=== PATIENT | male | born 1980 | race African-American/Black ===

== ENCOUNTER 2018-02-14 06:32 | Inpatient (IN) | payer MEDICAID, OTHER ==
[~2018-02-14] VITALS: Ht 182.9 cm; Wt 115.7 kg
[2018-02-14] MEDS ORDERED: LEVOFLOXACIN500 MG ORAL (06:47)
[2018-02-14] MEDS ORDERED: HYDROCODON-ACE1 EA15 ORAL (06:47)
--- NOTE | 2018-02-14 07:04 | Emergency Room Report ---
History of Present Illness General Chief Complaint: Abdominal Pain Source: Patient Present Illness HPI Patient presents with complaints of left lower abdominal pain Also pain with urination He reports that last week he was at [facility] with diagnosis of diverticulitis he was in the hospital for 4 days Denies any fevers Denies any vomiting denies any diarrhea As the pain became worse and the patient was having more pain with urination He was concerning came to the ER Allergies: Coded Allergies: No Known Allergies (Unverified , 02/14/18) Patient History Past Medical History: see triage record Pertinent Family History: none Reviewed Nursing Documentation: PMH: Agreed; PSxH: Agreed Nursing Documentation-PMH Past Medical History: No History, Except For Review of Systems All Other Systems: negative except mentioned in HPI Physical Exam Vital Signs Date Time Temp Pulse Resp B/P (MAP) Pulse Ox O2 Delivery O2 Flow Rate FiO2 02/14/18 06:42 98.1 92 24 149/93 95 Room Air Sp02 EP Interpretation: reviewed, normal General Appearance: no apparent distress Head: normocephalic, atraumatic Eyes: bilateral eye PERRL, bilateral eye EOMI ENT: hearing grossly normal, normal pharynx, TMs + canals normal, uvula midline Neck: full range of motion, supple, no meningismus, no bony tend Respiratory: lungs clear, normal breath sounds, no rhonchi, no respiratory distress, no retraction, no accessory muscle use Cardiovascular #1: normal peripheral pulses, regular rate, rhythm, no edema, no gallop, no JVD, no murmur Gastrointestinal: normal bowel sounds, non tender - On palpation however subjectively points to the left lower quadrant for pain, soft, no mass, no organomegaly, non-distended, no guarding, no hernia, no pulsatile mass, no rebound Genitourinary: no CVA tenderness Musculoskeletal: normal inspection Neurologic: oriented x3, responsive, round kiln drawer III-XII nml as tested, motor strength/ tone normal, sensory intact Psychiatric: mood/affect normal Skin: normal color, no rash, warm/dry, palpation normal Lymphatic: normal inspection, no adenopathy Medical Decision Making Diagnostic Impression: Primary Impression: Diverticulitis ER Course With the history exam and presentation, multiple differentials considered, including but not limited to appendicitis, gastritis, cholecystitis, diverticulitis Patient's white blood cell count is elevated CT imaging is performed showing evidence of acute diverticulitis Was also question and concern of possible microperforations Patient initiated on broad-spectrum antibiotics further IV hydration Gen. surgery has been contacted and patient requires inpatient admission Labs Test 02/14/18 06:45 White Blood Count 21.0 K/UL (4.8-10.8) Red Blood Count 5.38 M/UL (4.70-6.10) Hemoglobin 15.7 G/DL (14.2-18.0) Hematocrit 46.3 % (42.0-52.0) Mean Corpuscular Volume 86 FL (80-99) Mean Corpuscular Hemoglobin 29.2 PG (27.0-31.0) Mean Corpuscular Hemoglobin Concent 34.0 G/DL (32.0-36.0) Red Cell Distribution Width 10.8 % (11.6-14.8) Platelet Count 558 K/UL (150-450) Mean Platelet Volume 5.7 FL (6.5-10.1) Neutrophils (%) (Auto) % (45.0-75.0) Lymphocytes (%) (Auto) % (20.0-45.0) Monocytes (%) (Auto) % (1.0-10.0) Eosinophils (%) (Auto) % (0.0-3.0) Basophils (%) (Auto) % (0.0-2.0) Differential Total Cells Counted 100 Neutrophils % (Manual) 90 % (45-75) Lymphocytes % (Manual) 6 % (20-45) Monocytes % (Manual) 4 % (1-10) Eosinophils % (Manual) 0 % (0-3) Basophils % (Manual) 0 % (0-2) Band Neutrophils 0 % (0-8) Platelet Estimate Increased Platelet Morphology Normal Red Blood Cell Morphology Normal Urine Color Yellow Urine Appearance Clear Urine pH 5 (4.5-8.0) Urine Specific [place] 1.020 (1.005-1.035) Urine Protein 1+ (NEGATIVE) Urine Glucose (UA) Negative (NEGATIVE) Urine Ketones 2+ (NEGATIVE) Urine Blood Negative (NEGATIVE) Urine Nitrite Negative (NEGATIVE) Urine Bilirubin Negative (NEGATIVE) Urine Urobilinogen Normal MG/DL (0.0-1.0) Urine Leukocyte Esterase 1+ (NEGATIVE) Urine RBC 0 /HPF (0 - 0) Urine WBC 2-4 /HPF (0 - 0) Urine Squamous Epithelial Cells Occasional /LPF Urine Bacteria Occasional /HPF (NONE) Urine Mucus Many /LPF (NONE/OCC) Sodium Level 138 MMOL/L (136-145) Potassium Level 3.8 MMOL/L (3.5-5.1) Chloride Level 101 MMOL/L (98-107) Carbon Dioxide Level 24 MMOL/L (21-32) Anion Gap 13 mmol/L (5-15) Blood Urea Nitrogen 7 mg/dL (7-18) Creatinine 1.2 MG/DL (0.55-1.30) Estimat Glomerular Filtration Rate > 60 mL/min (>60) Glucose Level 104 MG/DL (74-106) Calcium Level 9.7 MG/DL (8.5-10.1) Total Bilirubin 0.4 MG/DL (0.2-1.0) Aspartate Amino Transf (AST/SGOT) 16 U/L (15-37) Alanine Aminotransferase (ALT/SGPT) 34 U/L (12-78) Alkaline Phosphatase 95 U/L (46-116) Total Protein 8.6 G/DL (6.4-8.2) Albumin 3.7 G/DL (3.4-5.0) Globulin 4.9 g/dL Albumin/Globulin Ratio 0.8 (1.0-2.7) Lipase 174 U/L (73-393) Urine Opiates Screen Positive (NEGATIVE) Urine Barbiturates Screen Negative (NEGATIVE) Phencyclidine (PCP) Screen Negative (NEGATIVE) Urine Amphetamines Screen Negative (NEGATIVE) Urine Benzodiazepines Screen Negative (NEGATIVE) Urine Cocaine Screen Negative (NEGATIVE) Urine Marijuana (THC) Screen Positive (NEGATIVE) Rhythm Strip Diag. Results EP Interpretation: yes Rate: 77 Rhythm: NSR, no PVC's, no ectopy CT/MRI/US Diagnostic Results CT/MRI/US Diagnostic Results : Impression CT abdomen pelvisIMPRESSION: Acute diverticulitis versus colitis in the sigmoid colon. Segmental wall thickening involving approximately 10-12 cm of the proximal and mid sigmoid colon with adjacent inflammatory stranding and adjacent trace foci of extraluminal free air, suggesting microperforation. Last Vital Signs Date Time Temp Pulse Resp B/P (MAP) Pulse Ox O2 Delivery O2 Flow Rate FiO2 02/14/18 06:42 98.1 92 24 149/93 95 Room Air Status: improved Disposition: ADMITTED INPATIENT Condition: Serious Referrals: [facility],REFERRING (PCP) Javier Carver DO Feb 14, 2018 07:04
[2018-02-14] MEDS ORDERED: Isovue-300 100ml vial INJ PRN (07:15)
[2018-02-14] MEDS ORDERED: Ketorolac 30mg Inj IV ONE (07:15)
[2018-02-14 07:21] VITALS: BP 153/91
[2018-02-14 07:25] LABS: APPEARANCE,URINE CLEAR; BILIRUBIN, URINE NEGATIVE (NEGATIVE); GLUCOSE, URINE (UA) NEGATIVE (NEGATIVE); KETONES,URINE 2+ (NEGATIVE); LEUKOCYTE ESTERASE ,URINE 1+ (NEGATIVE); NITRITE,URINE NEGATIVE (NEGATIVE); PH,URINE 5 (4.5-8.0); PROTEIN,URINE 1+ (NEGATIVE); UROBILINOGEN,URINE NORMAL MG/DL (0.0-1.0)
[2018-02-14 07:29] LABS: COLOR,URINE YELLOW
[2018-02-14 07:40] LABS: HEMATOCRIT 46.3 % (42.0-52.0); HEMOGLOBIN 15.7 G/DL (14.2-18.0); MEAN CORPUSCULAR VOLUME 86 FL (80-99); PLATELET COUNT 558 K/UL (150-450); RED BLOOD COUNT 5.38 M/UL (4.70-6.10); RED CELL DISTRIBUTION WIDTH 10.8 % (11.6-14.8)
[2018-02-14] MEDS ORDERED: Piperacillin/Tazobactam 3.375 GM in NS 110 ML IVPB ONE (07:45)
[2018-02-14 07:46] LABS: ANION GAP 13 mmol/L (5-15); BLOOD UREA NITROGEN 7 mg/dL (7-18); CALCIUM 9.7 MG/DL (8.5-10.1); CARBON DIOXIDE 24 MMOL/L (21-32); CHLORIDE 101 MMOL/L (98-107); CREATININE 1.2 MG/DL (0.55-1.30); POTASSIUM 3.8 MMOL/L (3.5-5.1); SODIUM 138 MMOL/L (136-145)
[2018-02-14 07:50] LABS: ALANINE AMINOTRANSFERASE 34 U/L (12-78); ALBUMIN 3.7 G/DL (3.4-5.0); ALBUMIN/GLOBULIN RATIO 0.8 (1.0-2.7); ALKALINE PHOSPHATASE 95 U/L (46-116); ASPARTATE AMINO TRANSFERASE 16 U/L (15-37); BILIRUBIN,TOTAL 0.4 MG/DL (0.2-1.0)
--- NOTE | 2018-02-14 08:50 | Diagnostic Imaging Report ---
EXAM: CT Abdomen and Pelvis With Intravenous Contrast CLINICAL HISTORY: PAIN TECHNIQUE: Axial computed tomography images of the abdomen and pelvis with intravenous contrast. CTDI is 18.99 mGy and DLP is 969 mGy-cm. One or more of the following dose reduction techniques were used: automated exposure control, adjustment of the mA and/or kV according to patient size, use of iterative reconstruction technique. COMPARISON: No relevant prior studies available. FINDINGS: Lung bases: Unremarkable. No mass. No consolidation. ABDOMEN: Liver: Unremarkable. No mass. Gallbladder and bile ducts: Unremarkable. No calcified stones. No ductal dilation. Pancreas: Unremarkable. No mass. No ductal dilation. Spleen: Unremarkable. No splenomegaly. Adrenals: Unremarkable. No mass. Kidneys and ureters: Unremarkable. No solid mass. No hydronephrosis. Stomach and bowel: Segmental wall thickening involving approximately 10-12 cm segment of the proximal and mid sigmoid colon with adjacent inflammatory stranding and adjacent trace foci of extraluminal free air. Remainder of the colon appears unremarkable. No abnormally distended loops of small bowel. GE junction and stomach appear unremarkable. No mucosal thickening. PELVIS: Appendix: No findings to suggest acute appendicitis. Bladder: Unremarkable. No mass. Reproductive: Unremarkable as visualized. ABDOMEN and PELVIS: Intraperitoneal space: Trace foci of free intraperitoneal air adjacent to the inflamed sigmoid colon. No significant fluid collection. Bones/joints: No acute fracture. No dislocation. Soft tissues: Unremarkable. Vasculature: Unremarkable. No abdominal aortic aneurysm. Lymph nodes: Unremarkable. No enlarged lymph nodes. IMPRESSION: Acute diverticulitis versus colitis in the sigmoid colon. Segmental wall thickening involving approximately 10-12 cm of the proximal and mid sigmoid colon with adjacent inflammatory stranding and adjacent trace foci of extraluminal free air, suggesting microperforation.
[2018-02-14 12:00] VITALS: BP 146/89
[2018-02-14] MEDS: Morphine Sulfate 2mg/ml Inj IVP PRN ×4 (12:41→22:42)
[2018-02-14] MEDS: Enoxaparin 40mg Inj SUBQ SCH (13:03)
--- NOTE | 2018-02-14 13:44 | Consultation ---
History of Present Illness General Chief Complaint: Abdominal Pain Reason for Consultation: diverticulitis Present Illness HPI 37M with sigmoid diverticulitis. patient was recently admitted to [facility] for 4 days of medical treatment of sigmoid diverticulitis. was discharged in stable condition but pain did not resolve so came to C for evaluation. noted to have leukocytosis, abd pain, and CT with microperf. surgery called to evaluate. states pain 6/10 now. no n/v/f/c. passing flatus. Allergies: Coded Allergies: No Known Allergies (Unverified , 02/14/18) Medication History Scheduled Levofloxacin (Levofloxacin*), 500 MG ORAL DAILY, (Reported) Scheduled PRN Hydrocodone/Acetaminophen 5-325* (Hydrocodone/Acetaminophen 5-325*), 1 TAB ORAL Q4H PRN for For Pain, (Reported) Patient History History Provided By: Patient, Medical Record, PMD Healthcare decision maker Resuscitation status Full Code Advanced Directive on File Past Medical/Surgical History Past Medical/Surgical History: (1) Diverticulitis Review of Systems All Other Systems: negative except mentioned in HPI Physical Exam General Appearance: no apparent distress, alert Lines, tubes and drains: peripheral HEENT: mucous membranes moist Neck: normal inspection Respiratory/Chest: normal breath sounds, no accessory muscle use Cardiovascular/Chest: regular rhythm Abdomen: normal bowel sounds, soft, no organomegaly, no mass, rebound, tender Extremities: normal inspection Skin Exam: warm/dry Neurologic: alert, responsive Last 24 Hour Vital Signs Date Time Temp Pulse Resp B/P (MAP) Pulse Ox O2 Delivery O2 Flow Rate FiO2 02/14/18 11:05 Room Air 02/14/18 10:18 98.5 77 24 120/72 100 Room Air 02/14/18 07:49 98.3 02/14/18 07:21 98.3 84 14 153/91 100 Room Air 02/14/18 06:50 92 24 Room Air 02/14/18 06:42 98.1 92 24 149/93 95 Room Air Laboratory Tests Test 02/14/18 06:45 White Blood Count 21.0 K/UL (4.8-10.8) H Red Blood Count 5.38 M/UL (4.70-6.10) Hemoglobin 15.7 G/DL (14.2-18.0) Hematocrit 46.3 % (42.0-52.0) Mean Corpuscular Volume 86 FL (80-99) Mean Corpuscular Hemoglobin 29.2 PG (27.0-31.0) Mean Corpuscular Hemoglobin Concent 34.0 G/DL (32.0-36.0) Red Cell Distribution Width 10.8 % (11.6-14.8) L Platelet Count 558 K/UL (150-450) H Mean Platelet Volume 5.7 FL (6.5-10.1) L Neutrophils (%) (Auto) % (45.0-75.0) Lymphocytes (%) (Auto) % (20.0-45.0) Monocytes (%) (Auto) % (1.0-10.0) Eosinophils (%) (Auto) % (0.0-3.0) Basophils (%) (Auto) % (0.0-2.0) Differential Total Cells Counted 100 Neutrophils % (Manual) 90 % (45-75) H Lymphocytes % (Manual) 6 % (20-45) L Monocytes % (Manual) 4 % (1-10) Eosinophils % (Manual) 0 % (0-3) Basophils % (Manual) 0 % (0-2) Band Neutrophils 0 % (0-8) Platelet Estimate Increased H Platelet Morphology Normal Red Blood Cell Morphology Normal Urine Color Yellow Urine Appearance Clear Urine pH 5 (4.5-8.0) Urine Specific [place] 1.020 (1.005-1.035) Urine Protein 1+ (NEGATIVE) H Urine Glucose (UA) Negative (NEGATIVE) Urine Ketones 2+ (NEGATIVE) H Urine Blood Negative (NEGATIVE) Urine Nitrite Negative (NEGATIVE) Urine Bilirubin Negative (NEGATIVE) Urine Urobilinogen Normal MG/DL (0.0-1.0) Urine Leukocyte Esterase 1+ (NEGATIVE) H Urine RBC 0 /HPF (0 - 0) Urine WBC 2-4 /HPF (0 - 0) Urine Squamous Epithelial Cells Occasional /LPF Urine Bacteria Occasional /HPF (NONE) Urine Mucus Many /LPF (NONE/OCC) H Sodium Level 138 MMOL/L (136-145) Potassium Level 3.8 MMOL/L (3.5-5.1) Chloride Level 101 MMOL/L (98-107) Carbon Dioxide Level 24 MMOL/L (21-32) Anion Gap 13 mmol/L (5-15) Blood Urea Nitrogen 7 mg/dL (7-18) Creatinine 1.2 MG/DL (0.55-1.30) Estimat Glomerular Filtration Rate > 60 mL/min (>60) Glucose Level 104 MG/DL (74-106) Calcium Level 9.7 MG/DL (8.5-10.1) Total Bilirubin 0.4 MG/DL (0.2-1.0) Aspartate Amino Transf (AST/SGOT) 16 U/L (15-37) Alanine Aminotransferase (ALT/SGPT) 34 U/L (12-78) Alkaline Phosphatase 95 U/L (46-116) Total Protein 8.6 G/DL (6.4-8.2) H Albumin 3.7 G/DL (3.4-5.0) Globulin 4.9 g/dL Albumin/Globulin Ratio 0.8 (1.0-2.7) L Lipase 174 U/L (73-393) Urine Opiates Screen Positive (NEGATIVE) H Urine Barbiturates Screen Negative (NEGATIVE) Phencyclidine (PCP) Screen Negative (NEGATIVE) Urine Amphetamines Screen Negative (NEGATIVE) Urine Benzodiazepines Screen Negative (NEGATIVE) Urine Cocaine Screen Negative (NEGATIVE) Urine Marijuana (THC) Screen Positive (NEGATIVE) H Height (Feet): 6 Height (Inches): 0.00 Weight (Pounds): 255 Medications Current Medications Medications (Trade) Dose Ordered Sig/Lulu Route PRN Reason Start Time Stop Time Status Last Admin Dose Admin Dextrose 1,000 ml @ 100 mls/hr Q10H IV 02/14/18 10:46 03/16/18 10:45 02/14/18 12:58 Dextrose (Dextrose 50%) 25 ml Q30M PRN IV Hypoglycemia 02/14/18 10:00 03/16/18 09:59 Dextrose (Dextrose 50%) 50 ml Q30M PRN IV Hypoglycemia 02/14/18 10:00 03/16/18 09:59 Enoxaparin Sodium (Lovenox) 40 mg Q24H SUBQ 02/14/18 11:00 03/16/18 10:59 02/14/18 13:03 Iopamidol (Isovue-300 100ml) 100 ml NOW PRN INJ Radiology Procedure 02/14/18 07:15 Morphine Sulfate (Morphine Sulfate) 1 mg Q2HR PRN IVP For Pain 02/14/18 10:00 02/21/18 09:59 02/14/18 12:41 Ondansetron HCl (Zofran) 4 mg Q6H PRN IVP Nausea & Vomiting 02/14/18 10:00 03/16/18 09:59 Piperacillin Sod/ Tazobactam Sod 3.375 gm/Sodium Chloride 110 ml @ 27.5 mls/hr EVERY 8 HOURS IVPB 02/14/18 14:00 02/19/18 13:59 UNV Assessment/Plan Problem List: (1) Diverticulitis Assessment & Plan: uncomplicated sigmoid diverticulitis with microperf. states microperf present during last CT at [facility]. no abscess or jeri perforation noted. on exam tender. afebrile, HD stable, leukocytosis npo iv fluids iv abx will monitor exam clinically if worsening will need surgery will follow with recs. cont with medical treatment of sigmoid diverticulitis for now thank you ICD Codes: K57.92 - Diverticulitis of intestine, part unspecified, without perforation or abscess without bleeding SNOMED: [id number] Status: stable Rigo Yu Feb 14, 2018 13:44
[2018-02-14] MEDS: Piperacillin/Tazobactam 3.375 GM in NS 110 ML IVPB SCH ×2 (15:29→23:00)
[2018-02-14 16:00] VITALS: BP 156/95
[2018-02-14 18:24] LABS: HEMATOCRIT 42.3 % (42.0-52.0); HEMOGLOBIN 14.2 G/DL (14.2-18.0); MEAN CORPUSCULAR VOLUME 87 FL (80-99); PLATELET COUNT 505 K/UL (150-450); RED BLOOD COUNT 4.85 M/UL (4.70-6.10); RED CELL DISTRIBUTION WIDTH 10.7 % (11.6-14.8); WHITE BLOOD COUNT 18.3 K/UL (4.8-10.8)
[2018-02-14 18:25] LABS: LYMPHOCYTES % (AUTO) 10.5 % (20.0-45.0); MONOCYTES % (AUTO) 6.3 % (1.0-10.0); NEUTROPHILS % (AUTO) 81.6 % (45.0-75.0)
[2018-02-14 18:26] LABS: BASOPHILS % (AUTO) 0.9 % (0.0-2.0); EOSINOPHILS % (AUTO) 0.8 % (0.0-3.0)
[2018-02-14 19:03] LABS: ALANINE AMINOTRANSFERASE 31 U/L (12-78); ALBUMIN 3.5 G/DL (3.4-5.0); ALBUMIN/GLOBULIN RATIO 0.9 (1.0-2.7); ALKALINE PHOSPHATASE 89 U/L (46-116); ANION GAP 10 mmol/L (5-15); ASPARTATE AMINO TRANSFERASE 15 U/L (15-37); BILIRUBIN,TOTAL 0.5 MG/DL (0.2-1.0); BLOOD UREA NITROGEN 9 mg/dL (7-18); CALCIUM 9.4 MG/DL (8.5-10.1); CARBON DIOXIDE 28 MMOL/L (21-32); CHLORIDE 102 MMOL/L (98-107); CREATININE 1.1 MG/DL (0.55-1.30); SODIUM 140 MMOL/L (136-145)
--- NOTE | 2018-02-14 19:45 | History and Physical Report ---
DATE OF ADMISSION: 02/14/2018 REASON FOR ADMISSION: Abdominal pain. MINISTER: Dr. Dotty Yu, General Surgery. HISTORY OF PRESENT ILLNESS: The patient is a 37-year-old gentleman, who approximately five days ago developed abdominal pain after jalapeno seeds and went to [facility]. In the emergency room, the patient was given pain medications and discharged home. Over the last four days, the patient states that his abdominal pain has progressively gotten worse. As such, he presented to the emergency room overnight for further evaluation and management with noted diverticulitis and microperforation. As such the patient is being admitted for further evaluation and care. No nausea, vomiting. No chest pain or shortness of breath. ALLERGIES: No known drug allergies. PAST MEDICAL HISTORY: None. FAMILY HISTORY: With diverticulitis. PAST SURGICAL HISTORY: None. LABORATORY DATA: Labs dated February 14, 2018, white cell count 21, hemoglobin 15, and platelet count 558. potassium 3.8, BUN 7, creatinine 1.2. Lipase 174. LFTs within normal range. Toxicology positive for opioids and marijuana. PHYSICAL EXAMINATION: VITAL SIGNS: Blood pressure 153/91, respiratory rate 14, pulse 84, and temperature 98.3. GENERAL: The patient awake, in mild distress. HEENT: Extraocular muscles intact. No lymphadenopathy. Oropharyngeal mucosa clear and dry. CARDIOVASCULAR: S1 and S2. No rubs or gallops. PULMONARY: Clear to auscultation bilaterally. No rales, rhonchi or wheezes. ABDOMEN: Nondistended and nontender. EXTREMITIES: No edema. ASSESSMENT AND PLAN: 1. Dehydration. At this time, the patient will be adequately hydrated. Dehydration secondary to poor oral intake from abdominal pain. 2. Abdominal pain. Secondary to diverticulitis with microperforations. General Surgery has already been consulted for further evaluation and management and antibiotics will be adjusted per Infectious Disease. 3. DVT prophylaxis with Lovenox. Rafael Francis MD DR: HALEY JOB#: [id number] CC: LADI
[2018-02-14 20:00] VITALS: BP 144/87
[2018-02-15] VITALS: BP 152/82
[2018-02-15] MEDS: Morphine Sulfate 2mg/ml Inj IVP PRN ×9 (02:03→22:45)
[2018-02-15 04:00] VITALS: BP 144/95
[2018-02-15 07:15] LABS: HEMATOCRIT 41.7 % (42.0-52.0); HEMOGLOBIN 14.3 G/DL (14.2-18.0); MEAN CORPUSCULAR VOLUME 86 FL (80-99); PLATELET COUNT 479 K/UL (150-450); RED BLOOD COUNT 4.84 M/UL (4.70-6.10); RED CELL DISTRIBUTION WIDTH 10.8 % (11.6-14.8); WHITE BLOOD COUNT 18.1 K/UL (4.8-10.8)
[2018-02-15 07:17] LABS: ANION GAP 12 mmol/L (5-15); BLOOD UREA NITROGEN 7 mg/dL (7-18); CALCIUM 9.3 MG/DL (8.5-10.1); CARBON DIOXIDE 24 MMOL/L (21-32); CHLORIDE 101 MMOL/L (98-107); POTASSIUM 3.4 MMOL/L (3.5-5.1); SODIUM 137 MMOL/L (136-145)
[2018-02-15 08:00] VITALS: BP 161/82
[2018-02-15] MEDS: Piperacillin/Tazobactam 3.375 GM in NS 110 ML IVPB SCH ×2 (08:13→17:12)
[2018-02-15] MEDS: Enoxaparin 40mg Inj SUBQ SCH (10:34)
--- NOTE | 2018-02-15 10:41 | Consultation ---
History of Present Illness General Date patient seen: Feb 15, 2018 Chief Complaint: Abdominal Pain Reason for Consultation: diverticulitis Present Illness HPI 37 y/o M with no prior medical hx presents to ED on 02/14 ongoing abd pain. Patient was recently admitted to [facility] for 4 days for medical treatment of sigmoid diverticulitis and was discharged in stable condition but pain did not resolved for patient came to C for evaluation. Upon admission, patient was found to have leukocytosis, abd pain and CT showed diverticulitis with microperforation Also endorsed dysuria. Denies f/c, n/v/d. Allergies: Coded Allergies: No Known Allergies (Unverified , 02/14/18) Medication History Scheduled Levofloxacin (Levofloxacin*), 500 MG ORAL DAILY, (Reported) Scheduled PRN Hydrocodone/Acetaminophen 5-325* (Hydrocodone/Acetaminophen 5-325*), 1 TAB ORAL Q4H PRN for For Pain, (Reported) Patient History Healthcare decision maker Resuscitation status Full Code Advanced Directive on File Patient History Narrative PMhx: as above Shx: reviewed Fhx: non contributory Review of Systems All Other Systems: negative except mentioned in HPI Physical Exam Physical Exam Narrative PHYSICAL EXAMINATION: VITAL SIGNS: Blood pressure 153/91, respiratory rate 14, pulse 84, and temperature 98.3. GENERAL: The patient awake, in mild distress. HEENT: Extraocular muscles intact. No lymphadenopathy. Oropharyngeal mucosa clear and dry. CARDIOVASCULAR: S1 and S2. No rubs or gallops. PULMONARY: Clear to auscultation bilaterally. No rales, rhonchi or wheezes. ABDOMEN: Nondistended and nontender. EXTREMITIES: No edema. Last 24 Hour Vital Signs Date Time Temp Pulse Resp B/P (MAP) Pulse Ox O2 Delivery O2 Flow Rate FiO2 02/15/18 09:00 Room Air 02/15/18 08:00 98.8 79 19 161/82 (108) 96 02/15/18 04:00 97.9 80 16 144/95 (111) 96 02/15/18 00:00 97.9 75 17 152/82 (105) 97 02/14/18 21:00 Room Air 02/14/18 20:00 99.7 84 16 144/87 (106) 96 02/14/18 19:24 98.5 02/14/18 16:00 99.3 90 20 156/95 (115) 99 02/14/18 12:00 97.3 75 18 146/89 (108) 100 02/14/18 11:05 Room Air Intake and Output 02/14/18 02/15/18 18:59 06:59 Intake Total 1510 ml 410.0 ml Balance 1510 ml 410.0 ml Intake IV Total 1510 ml 410.0 ml Laboratory Tests Test 02/14/18 13:36 02/14/18 17:30 02/15/18 05:30 Sodium Level 140 MMOL/L (136-145) 137 MMOL/L (136-145) Potassium Level 4.0 MMOL/L (3.5-5.1) 3.4 MMOL/L (3.5-5.1) L Chloride Level 102 MMOL/L (98-107) 101 MMOL/L (98-107) Carbon Dioxide Level 28 MMOL/L (21-32) 24 MMOL/L (21-32) Anion Gap 10 mmol/L (5-15) 12 mmol/L (5-15) Blood Urea Nitrogen 9 mg/dL (7-18) 7 mg/dL (7-18) Creatinine 1.1 MG/DL (0.55-1.30) 1.0 MG/DL (0.55-1.30) Estimat Glomerular Filtration Rate > 60 mL/min (>60) > 60 mL/min (>60) Glucose Level 84 MG/DL (74-106) 98 MG/DL (74-106) Calcium Level 9.4 MG/DL (8.5-10.1) 9.3 MG/DL (8.5-10.1) Total Bilirubin 0.5 MG/DL (0.2-1.0) Aspartate Amino Transf (AST/SGOT) 15 U/L (15-37) Alanine Aminotransferase (ALT/SGPT) 31 U/L (12-78) Alkaline Phosphatase 89 U/L (46-116) Total Protein 7.2 G/DL (6.4-8.2) Albumin 3.5 G/DL (3.4-5.0) Globulin 3.7 g/dL Albumin/Globulin Ratio 0.9 (1.0-2.7) L White Blood Count 18.3 K/UL (4.8-10.8) H 18.1 K/UL (4.8-10.8) H Red Blood Count 4.85 M/UL (4.70-6.10) 4.84 M/UL (4.70-6.10) Hemoglobin 14.2 G/DL (14.2-18.0) 14.3 G/DL (14.2-18.0) Hematocrit 42.3 % (42.0-52.0) 41.7 % (42.0-52.0) L Mean Corpuscular Volume 87 FL (80-99) 86 FL (80-99) Mean Corpuscular Hemoglobin 29.2 PG (27.0-31.0) 29.5 PG (27.0-31.0) Mean Corpuscular Hemoglobin Concent 33.5 G/DL (32.0-36.0) 34.2 G/DL (32.0-36.0) Red Cell Distribution Width 10.7 % (11.6-14.8) L 10.8 % (11.6-14.8) L Platelet Count 505 K/UL (150-450) H 479 K/UL (150-450) H Mean Platelet Volume 6.0 FL (6.5-10.1) L 5.8 FL (6.5-10.1) L Neutrophils (%) (Auto) 81.6 % (45.0-75.0) H % (45.0-75.0) Lymphocytes (%) (Auto) 10.5 % (20.0-45.0) L % (20.0-45.0) Monocytes (%) (Auto) 6.3 % (1.0-10.0) % (1.0-10.0) Eosinophils (%) (Auto) 0.8 % (0.0-3.0) % (0.0-3.0) Basophils (%) (Auto) 0.9 % (0.0-2.0) % (0.0-2.0) Differential Total Cells Counted 100 Neutrophils % (Manual) 85 % (45-75) H Lymphocytes % (Manual) 6 % (20-45) L Monocytes % (Manual) 7 % (1-10) Eosinophils % (Manual) 2 % (0-3) Basophils % (Manual) 0 % (0-2) Band Neutrophils 0 % (0-8) Platelet Estimate Adequate Platelet Morphology Normal Red Blood Cell Morphology Normal Height (Feet): 6 Height (Inches): 0.00 Weight (Pounds): 255 Medications Current Medications Medications (Trade) Dose Ordered Sig/Lulu Route PRN Reason Start Time Stop Time Status Last Admin Dose Admin Dextrose 1,000 ml @ 100 mls/hr Q10H IV 02/14/18 10:46 03/16/18 10:45 02/14/18 23:07 Dextrose (Dextrose 50%) 25 ml Q30M PRN IV Hypoglycemia 02/14/18 10:00 03/16/18 09:59 Dextrose (Dextrose 50%) 50 ml Q30M PRN IV Hypoglycemia 02/14/18 10:00 03/16/18 09:59 Enoxaparin Sodium (Lovenox) 40 mg Q24H SUBQ 02/14/18 11:00 03/16/18 10:59 02/14/18 13:03 Iopamidol (Isovue-300 100ml) 100 ml NOW PRN INJ Radiology Procedure 02/14/18 07:15 Morphine Sulfate (Morphine Sulfate) 1 mg Q2HR PRN IVP For Pain 02/14/18 10:00 02/21/18 09:59 02/15/18 08:14 Ondansetron HCl (Zofran) 4 mg Q6H PRN IVP Nausea & Vomiting 02/14/18 10:00 03/16/18 09:59 Piperacillin Sod/ Tazobactam Sod 3.375 gm/Sodium Chloride 110 ml @ 27.5 mls/hr Q8H IVPB 02/14/18 16:00 02/21/18 15:59 02/15/18 08:13 Assessment/Plan Assessment/Plan Abx: Flagyl x1 02/14 Zosyn 02/14- Assessment: Acute sigmoid diverticulitis w/ microperforation -CT abd/p: Acute diverticulitis versus colitis in the sigmoid colon. Segmental wall thickening involving approximately 10-12 cm of the proximal and mid sigmoid colon with adjacent inflammatory stranding and adjacent trace foci of extraluminal free air, suggesting microperforation. Leukocytosis, improving -u/a neg Afebrile Plan: -Continue Zosyn #2 for diverticulitis -f/u cx -Bcx x2 -Monitor CBC/CMP, temperatures -Sx f/u Thank you for this consultation. Will continue to follow along with you. Discussed with ARIA. Esperanza Mike M.D. Feb 15, 2018 10:41
--- NOTE | 2018-02-15 11:24 | General Surgery Progress Note ---
General Surgery-Progress Note Subjective Additional Comments leukocytosis 18k. states abdominal pain improve. had BM. Objective Last 24 Hour Vital Signs Date Time Temp Pulse Resp B/P (MAP) Pulse Ox O2 Delivery O2 Flow Rate FiO2 02/15/18 09:00 Room Air 02/15/18 08:00 98.8 79 19 161/82 (108) 96 02/15/18 04:00 97.9 80 16 144/95 (111) 96 02/15/18 00:00 97.9 75 17 152/82 (105) 97 02/14/18 21:00 Room Air 02/14/18 20:00 99.7 84 16 144/87 (106) 96 02/14/18 19:24 98.5 02/14/18 16:00 99.3 90 20 156/95 (115) 99 02/14/18 12:00 97.3 75 18 146/89 (108) 100 I&O Intake and Output 02/14/18 02/15/18 18:59 06:59 Intake Total 1510 ml 410.0 ml Balance 1510 ml 410.0 ml Intake IV Total 1510 ml 410.0 ml Drains: none Cardiovascular: RSR Respiratory: clear Abdomen: soft, flat, non-tender, present bowel sounds Extremities: no cyanosis Laboratory Tests Test 02/14/18 13:36 02/14/18 17:30 02/15/18 05:30 Sodium Level 140 MMOL/L (136-145) 137 MMOL/L (136-145) Potassium Level 4.0 MMOL/L (3.5-5.1) 3.4 MMOL/L (3.5-5.1) L Chloride Level 102 MMOL/L (98-107) 101 MMOL/L (98-107) Carbon Dioxide Level 28 MMOL/L (21-32) 24 MMOL/L (21-32) Anion Gap 10 mmol/L (5-15) 12 mmol/L (5-15) Blood Urea Nitrogen 9 mg/dL (7-18) 7 mg/dL (7-18) Creatinine 1.1 MG/DL (0.55-1.30) 1.0 MG/DL (0.55-1.30) Estimat Glomerular Filtration Rate > 60 mL/min (>60) > 60 mL/min (>60) Glucose Level 84 MG/DL (74-106) 98 MG/DL (74-106) Calcium Level 9.4 MG/DL (8.5-10.1) 9.3 MG/DL (8.5-10.1) Total Bilirubin 0.5 MG/DL (0.2-1.0) Aspartate Amino Transf (AST/SGOT) 15 U/L (15-37) Alanine Aminotransferase (ALT/SGPT) 31 U/L (12-78) Alkaline Phosphatase 89 U/L (46-116) Total Protein 7.2 G/DL (6.4-8.2) Albumin 3.5 G/DL (3.4-5.0) Globulin 3.7 g/dL Albumin/Globulin Ratio 0.9 (1.0-2.7) L White Blood Count 18.3 K/UL (4.8-10.8) H 18.1 K/UL (4.8-10.8) H Red Blood Count 4.85 M/UL (4.70-6.10) 4.84 M/UL (4.70-6.10) Hemoglobin 14.2 G/DL (14.2-18.0) 14.3 G/DL (14.2-18.0) Hematocrit 42.3 % (42.0-52.0) 41.7 % (42.0-52.0) L Mean Corpuscular Volume 87 FL (80-99) 86 FL (80-99) Mean Corpuscular Hemoglobin 29.2 PG (27.0-31.0) 29.5 PG (27.0-31.0) Mean Corpuscular Hemoglobin Concent 33.5 G/DL (32.0-36.0) 34.2 G/DL (32.0-36.0) Red Cell Distribution Width 10.7 % (11.6-14.8) L 10.8 % (11.6-14.8) L Platelet Count 505 K/UL (150-450) H 479 K/UL (150-450) H Mean Platelet Volume 6.0 FL (6.5-10.1) L 5.8 FL (6.5-10.1) L Neutrophils (%) (Auto) 81.6 % (45.0-75.0) H % (45.0-75.0) Lymphocytes (%) (Auto) 10.5 % (20.0-45.0) L % (20.0-45.0) Monocytes (%) (Auto) 6.3 % (1.0-10.0) % (1.0-10.0) Eosinophils (%) (Auto) 0.8 % (0.0-3.0) % (0.0-3.0) Basophils (%) (Auto) 0.9 % (0.0-2.0) % (0.0-2.0) Differential Total Cells Counted 100 Neutrophils % (Manual) 85 % (45-75) H Lymphocytes % (Manual) 6 % (20-45) L Monocytes % (Manual) 7 % (1-10) Eosinophils % (Manual) 2 % (0-3) Basophils % (Manual) 0 % (0-2) Band Neutrophils 0 % (0-8) Platelet Estimate Adequate Platelet Morphology Normal Red Blood Cell Morphology Normal Plan Problems: (1) Diverticulitis Assessment & Plan: uncomplicated sigmoid diverticulitis with microperf. states microperf present during last CT at [facility]. no abscess or jeri perforation noted. on exam tender. afebrile, HD stable, leukocytosis start clear liquids iv fluids iv abx will monitor exam clinically if worsening will need surgery will follow with recs. cont with medical treatment of sigmoid diverticulitis for now thank you Rigo Yu Feb 15, 2018 11:24
[2018-02-15 12:00] VITALS: BP 144/95
--- NOTE | 2018-02-15 12:43 | Nephrology Progress Note ---
Assessment/Plan Assessment/Plan A/P 1) Abd Pain- uncomplicated sigmoid diverticulitis with microperf - WBC improving, continue Abx for now and monitor 2. DVT prophylaxsis - lovenox Subjective Date patient seen: Feb 15, 2018 Time patient seen: 12:40 ROS Limited/Unobtainable: No Gastrointestinal/Abdominal: Reports: abdominal pain Allergies: Coded Allergies: No Known Allergies (Unverified , 02/14/18) Subjective Patient says Abd pain much improved Objective Last 24 Hour Vital Signs Date Time Temp Pulse Resp B/P (MAP) Pulse Ox O2 Delivery O2 Flow Rate FiO2 02/15/18 09:00 Room Air 02/15/18 08:00 98.8 79 19 161/82 (108) 96 02/15/18 04:00 97.9 80 16 144/95 (111) 96 02/15/18 00:00 97.9 75 17 152/82 (105) 97 02/14/18 21:00 Room Air 02/14/18 20:00 99.7 84 16 144/87 (106) 96 02/14/18 19:24 98.5 02/14/18 16:00 99.3 90 20 156/95 (115) 99 Intake and Output 02/14/18 02/15/18 18:59 06:59 Intake Total 1510 ml 410.0 ml Balance 1510 ml 410.0 ml Intake IV Total 1510 ml 410.0 ml Laboratory Tests 02/14/18 13:36: Sodium Level 140, Potassium Level 4.0, Chloride Level 102, Carbon Dioxide Level 28, Anion Gap 10, Blood Urea Nitrogen 9, Creatinine 1.1, Estimat Glomerular Filtration Rate > 60, Glucose Level 84, Calcium Level 9.4, Total Bilirubin 0.5, Aspartate Amino Transf (AST/SGOT) 15, Alanine Aminotransferase (ALT/SGPT) 31, Alkaline Phosphatase 89, Total Protein 7.2, Albumin 3.5, Globulin 3.7, Albumin/ Globulin Ratio 0.9L 02/14/18 17:30: White Blood Count 18.3H, Red Blood Count 4.85, Hemoglobin 14.2, Hematocrit 42.3 , Mean Corpuscular Volume 87, Mean Corpuscular Hemoglobin 29.2, Mean Corpuscular Hemoglobin Concent 33.5, Red Cell Distribution Width 10.7L, Platelet Count 505H, Mean Platelet Volume 6.0L, Neutrophils (%) (Auto) 81.6H, Lymphocytes (%) (Auto) 10.5L, Monocytes (%) (Auto) 6.3, Eosinophils (%) (Auto) 0.8, Basophils (%) (Auto) 0.9 02/15/18 05:30: Sodium Level 137, Potassium Level 3.4L, Chloride Level 101, Carbon Dioxide Level 24, Anion Gap 12, Blood Urea Nitrogen 7, Creatinine 1.0, Estimat Glomerular Filtration Rate > 60, Glucose Level 98, Calcium Level 9.3, White Blood Count 18.1H, Red Blood Count 4.84, Hemoglobin 14.3, Hematocrit 41.7L, Mean Corpuscular Volume 86, Mean Corpuscular Hemoglobin 29.5, Mean Corpuscular Hemoglobin Concent 34.2, Red Cell Distribution Width 10.8L, Platelet Count 479H , Mean Platelet Volume 5.8L, Neutrophils (%) (Auto) , Lymphocytes (%) (Auto) , Monocytes (%) (Auto) , Eosinophils (%) (Auto) , Basophils (%) (Auto) , Differential Total Cells Counted 100, Neutrophils % (Manual) 85H, Lymphocytes % (Manual) 6L, Monocytes % (Manual) 7, Eosinophils % (Manual) 2, Basophils % ( Manual) 0, Band Neutrophils 0, Platelet Estimate Adequate, Platelet Morphology Normal, Red Blood Cell Morphology Normal Height (Feet): 6 Height (Inches): 0.00 Weight (Pounds): 255 General Appearance: no apparent distress, alert EENT: normal ENT inspection Neck: normal alignment, supple Cardiovascular: normal rate, regular rhythm Respiratory/Chest: lungs clear, normal breath sounds Abdomen: guarding Edema: no edema noted Arm (L), no edema noted Arm (R), no edema noted Leg (L), no edema noted Leg (R), no edema noted Pedal (L), no edema noted Pedal (R), no edema noted Generalized Rafael Francis MD Feb 15, 2018 12:43
[2018-02-15 16:00] VITALS: BP 143/91
[2018-02-15 20:00] VITALS: BP 145/84
[2018-02-16] VITALS: BP 143/82
[2018-02-16 04:00] VITALS: BP 154/92
[2018-02-16] MEDS: Morphine Sulfate 2mg/ml Inj IVP PRN ×6 (04:09→21:32)
[2018-02-16 07:13] LABS: ANION GAP 12 mmol/L (5-15); BLOOD UREA NITROGEN 7 mg/dL (7-18); CALCIUM 9.2 MG/DL (8.5-10.1); CARBON DIOXIDE 26 MMOL/L (21-32); CHLORIDE 98 MMOL/L (98-107); CREATININE 1.1 MG/DL (0.55-1.30); POTASSIUM 3.9 MMOL/L (3.5-5.1); SODIUM 136 MMOL/L (136-145)
[2018-02-16 07:16] LABS: HEMATOCRIT 40.3 % (42.0-52.0); HEMOGLOBIN 13.8 G/DL (14.2-18.0); MEAN CORPUSCULAR VOLUME 87 FL (80-99); PLATELET COUNT 436 K/UL (150-450); RED BLOOD COUNT 4.64 M/UL (4.70-6.10); RED CELL DISTRIBUTION WIDTH 11.2 % (11.6-14.8); WHITE BLOOD COUNT 18.2 K/UL (4.8-10.8)
[2018-02-16 08:00] VITALS: BP 138/94
[2018-02-16] MEDS: Piperacillin/Tazobactam 3.375 GM in NS 110 ML IVPB SCH ×4 (08:28→15:43)
--- NOTE | 2018-02-16 10:05 | Nephrology Progress Note ---
Assessment/Plan Assessment/Plan A/P 1) Abd Pain- uncomplicated sigmoid diverticulitis with microperf - DC patient once cleared by ID and Gen Surg 2. DVT prophylaxsis - lovenox Subjective Date patient seen: Feb 16, 2018 Time patient seen: 10:04 ROS Limited/Unobtainable: No Gastrointestinal/Abdominal: Reports: abdominal pain Allergies: Coded Allergies: No Known Allergies (Unverified , 02/14/18) Subjective Abd pain much improved Objective Last 24 Hour Vital Signs Date Time Temp Pulse Resp B/P (MAP) Pulse Ox O2 Delivery O2 Flow Rate FiO2 02/16/18 09:03 97.8 02/16/18 09:00 Room Air 02/16/18 08:00 97.8 80 18 138/94 (109) 96 02/16/18 04:00 99.1 80 20 154/92 (112) 95 02/16/18 00:00 99.8 81 18 143/82 (102) 99 02/15/18 21:00 Room Air 02/15/18 20:00 101.1 91 18 145/84 (104) 98 02/15/18 16:00 99.6 81 18 143/91 (108) 98 02/15/18 12:00 98.5 84 18 144/95 (111) 98 Intake and Output 02/15/18 02/16/18 19:00 07:00 Intake Total 537.5 ml 492.5 ml Balance 537.5 ml 492.5 ml Intake IV Total 537.5 ml 492.5 ml Laboratory Tests 02/16/18 06:30: White Blood Count 18.2H, Red Blood Count 4.64L, Hemoglobin 13.8L, Hematocrit 40.3L, Mean Corpuscular Volume 87, Mean Corpuscular Hemoglobin 29.8, Mean Corpuscular Hemoglobin Concent 34.4, Red Cell Distribution Width 11.2L, Platelet Count 436, Mean Platelet Volume 5.7L, Neutrophils (%) (Auto) , Lymphocytes (%) (Auto) , Monocytes (%) (Auto) , Eosinophils (%) (Auto) , Basophils (%) (Auto) , Differential Total Cells Counted 100, Neutrophils % ( Manual) 84H, Lymphocytes % (Manual) 6L, Monocytes % (Manual) 9, Eosinophils % ( Manual) 0, Basophils % (Manual) 0, Band Neutrophils 1, Platelet Estimate Adequate, Platelet Morphology Normal, Red Blood Cell Morphology Normal, Sodium Level 136, Potassium Level 3.9, Chloride Level 98, Carbon Dioxide Level 26, Anion Gap 12, Blood Urea Nitrogen 7, Creatinine 1.1, Estimat Glomerular Filtration Rate > 60, Glucose Level 104, Calcium Level 9.2 Height (Feet): 6 Height (Inches): 0.00 Weight (Pounds): 255 General Appearance: no apparent distress, alert EENT: normal ENT inspection Neck: normal alignment, supple Cardiovascular: normal rate, regular rhythm Respiratory/Chest: lungs clear, normal breath sounds Abdomen: non tender, soft, no organomegaly Edema: no edema noted Arm (L), no edema noted Arm (R), no edema noted Leg (L), no edema noted Leg (R), no edema noted Pedal (L), no edema noted Pedal (R), no edema noted Generalized Rafael Francis MD Feb 16, 2018 10:05
[2018-02-16] MEDS: Enoxaparin 40mg Inj SUBQ SCH (12:03)
[2018-02-16 12:10] VITALS: BP 144/92
[2018-02-16 16:00] VITALS: BP 143/87
--- NOTE | 2018-02-16 16:24 | General Surgery Progress Note ---
General Surgery-Progress Note Subjective Additional Comments pain okay but continues to have leukocytosis. no n/v/f/c. +flatus Objective Last 24 Hour Vital Signs Date Time Temp Pulse Resp B/P (MAP) Pulse Ox O2 Delivery O2 Flow Rate FiO2 02/16/18 14:44 98.1 02/16/18 12:10 98.1 77 18 144/92 (109) 96 02/16/18 12:02 97.8 02/16/18 09:00 Room Air 02/16/18 08:00 97.8 80 18 138/94 (109) 96 02/16/18 04:00 99.1 80 20 154/92 (112) 95 02/16/18 00:00 99.8 81 18 143/82 (102) 99 02/15/18 21:00 Room Air 02/15/18 20:00 101.1 91 18 145/84 (104) 98 I&O Intake and Output 02/15/18 02/16/18 18:59 06:59 Intake Total 537.5 ml 492.5 ml Balance 537.5 ml 492.5 ml Intake IV Total 537.5 ml 492.5 ml Drains: none Cardiovascular: RSR Respiratory: clear Abdomen: soft, flat, non-tender, present bowel sounds Extremities: no cyanosis Laboratory Tests Test 02/16/18 06:30 White Blood Count 18.2 K/UL (4.8-10.8) H Red Blood Count 4.64 M/UL (4.70-6.10) L Hemoglobin 13.8 G/DL (14.2-18.0) L Hematocrit 40.3 % (42.0-52.0) L Mean Corpuscular Volume 87 FL (80-99) Mean Corpuscular Hemoglobin 29.8 PG (27.0-31.0) Mean Corpuscular Hemoglobin Concent 34.4 G/DL (32.0-36.0) Red Cell Distribution Width 11.2 % (11.6-14.8) L Platelet Count 436 K/UL (150-450) Mean Platelet Volume 5.7 FL (6.5-10.1) L Neutrophils (%) (Auto) % (45.0-75.0) Lymphocytes (%) (Auto) % (20.0-45.0) Monocytes (%) (Auto) % (1.0-10.0) Eosinophils (%) (Auto) % (0.0-3.0) Basophils (%) (Auto) % (0.0-2.0) Differential Total Cells Counted 100 Neutrophils % (Manual) 84 % (45-75) H Lymphocytes % (Manual) 6 % (20-45) L Monocytes % (Manual) 9 % (1-10) Eosinophils % (Manual) 0 % (0-3) Basophils % (Manual) 0 % (0-2) Band Neutrophils 1 % (0-8) Platelet Estimate Adequate Platelet Morphology Normal Red Blood Cell Morphology Normal Sodium Level 136 MMOL/L (136-145) Potassium Level 3.9 MMOL/L (3.5-5.1) Chloride Level 98 MMOL/L (98-107) Carbon Dioxide Level 26 MMOL/L (21-32) Anion Gap 12 mmol/L (5-15) Blood Urea Nitrogen 7 mg/dL (7-18) Creatinine 1.1 MG/DL (0.55-1.30) Estimat Glomerular Filtration Rate > 60 mL/min (>60) Glucose Level 104 MG/DL (74-106) Calcium Level 9.2 MG/DL (8.5-10.1) Plan Problems: (1) Diverticulitis Assessment & Plan: uncomplicated sigmoid diverticulitis with microperf. states microperf present during last CT at [facility]. no abscess or jeri perforation noted. on exam tender. afebrile, HD stable, leukocytosis cont with full liquids iv fluids iv abx will monitor exam clinically repeat CT scan tomorrow. if improved plan to d/c home with oral abx. if not will discuss options with patient if worsening will need surgery will follow with recs. cont with medical treatment of sigmoid diverticulitis for now thank you Rigo Yu Feb 16, 2018 16:24
[2018-02-16] MEDS: Docusate 100mg cap ORAL SCH (17:27)
[2018-02-16 20:00] VITALS: BP 125/82
[2018-02-17] VITALS: BP 160/74
[2018-02-17] MEDS: Piperacillin/Tazobactam 3.375 GM in NS 110 ML IVPB SCH ×3 (00:04→16:37)
[2018-02-17] MEDS: Morphine Sulfate 2mg/ml Inj IVP PRN ×7 (00:33→23:04)
[2018-02-17 04:00] VITALS: BP 132/69
[2018-02-17 07:23] LABS: BASOPHILS % (AUTO) 0.8 % (0.0-2.0); EOSINOPHILS % (AUTO) 1.7 % (0.0-3.0); HEMATOCRIT 39.1 % (42.0-52.0); HEMOGLOBIN 13.5 G/DL (14.2-18.0); LYMPHOCYTES % (AUTO) 10.6 % (20.0-45.0); MEAN CORPUSCULAR VOLUME 86 FL (80-99); PLATELET COUNT 465 K/UL (150-450); RED BLOOD COUNT 4.53 M/UL (4.70-6.10); RED CELL DISTRIBUTION WIDTH 11.3 % (11.6-14.8); WHITE BLOOD COUNT 16.6 K/UL (4.8-10.8)
[2018-02-17 07:46] LABS: ANION GAP 12 mmol/L (5-15); BLOOD UREA NITROGEN 5 mg/dL (7-18); CALCIUM 9.7 MG/DL (8.5-10.1); CARBON DIOXIDE 25 MMOL/L (21-32); CHLORIDE 99 MMOL/L (98-107); POTASSIUM 3.4 MMOL/L (3.5-5.1); SODIUM 136 MMOL/L (136-145)
[2018-02-17 08:00] VITALS: BP 147/104
[2018-02-17] MEDS: Docusate 100mg cap ORAL SCH ×2 (08:19→18:49)
--- NOTE | 2018-02-17 09:48 | Nephrology Progress Note ---
Assessment/Plan Assessment/Plan A/P 1) Abd Pain- uncomplicated sigmoid diverticulitis - DC patient once cleared by ID and Gen Surg - WBC improving. 2. DVT prophylaxsis - lovenox Subjective Date patient seen: Feb 17, 2018 Time patient seen: 09:44 ROS Limited/Unobtainable: No Gastrointestinal/Abdominal: Reports: abdominal pain Allergies: Coded Allergies: No Known Allergies (Unverified , 02/14/18) Subjective Abd pain much improved but remains. WBC improved Objective Last 24 Hour Vital Signs Date Time Temp Pulse Resp B/P (MAP) Pulse Ox O2 Delivery O2 Flow Rate FiO2 02/17/18 08:49 97.9 02/17/18 04:00 97.9 77 18 132/69 (90) 96 02/17/18 00:00 98.7 71 19 160/74 (102) 95 02/16/18 21:00 Room Air 02/16/18 20:00 97.7 85 19 125/82 (96) 96 02/16/18 16:00 97.5 83 18 143/87 (105) 94 02/16/18 12:10 98.1 77 18 144/92 (109) 96 02/16/18 12:02 97.8 Intake and Output 02/16/18 02/17/18 19:00 07:00 Intake Total 392.5 ml 1000 ml Balance 392.5 ml 1000 ml Intake IV Total 392.5 ml 1000 ml Laboratory Tests 02/17/18 06:10: White Blood Count 16.6H, Red Blood Count 4.53L, Hemoglobin 13.5L, Hematocrit 39.1L, Mean Corpuscular Volume 86, Mean Corpuscular Hemoglobin 29.8, Mean Corpuscular Hemoglobin Concent 34.6, Red Cell Distribution Width 11.3L, Platelet Count 465H, Mean Platelet Volume 5.8L, Neutrophils (%) (Auto) 79.0H, Lymphocytes (%) (Auto) 10.6L, Monocytes (%) (Auto) 8.0, Eosinophils (%) (Auto) 1.7, Basophils (%) (Auto) 0.8, Erythrocyte Sedimentation Rate 34H, Sodium Level 136, Potassium Level 3.4L, Chloride Level 99, Carbon Dioxide Level 25, Anion Gap 12, Blood Urea Nitrogen 5L, Creatinine 1.0, Estimat Glomerular Filtration Rate > 60, Glucose Level 108H, Calcium Level 9.7, C-Reactive Protein, Quantitative 28.4H Height (Feet): 6 Height (Inches): 0.00 Weight (Pounds): 255 General Appearance: no apparent distress, alert EENT: normal ENT inspection Neck: normal alignment, supple Cardiovascular: normal rate, regular rhythm Respiratory/Chest: lungs clear, normal breath sounds Abdomen: non tender, soft Edema: no edema noted Arm (L), no edema noted Arm (R), no edema noted Leg (L), no edema noted Leg (R), no edema noted Pedal (L), no edema noted Pedal (R), no edema noted Generalized Rafael Francis MD Feb 17, 2018 09:48
--- NOTE | 2018-02-17 10:14 | General Surgery Progress Note ---
General Surgery-Progress Note Subjective Symptoms: improved, tolerating diet, passing flatus Additional Comments pain improved. labs improved Objective Last 24 Hour Vital Signs Date Time Temp Pulse Resp B/P (MAP) Pulse Ox O2 Delivery O2 Flow Rate FiO2 02/17/18 08:49 97.9 02/17/18 08:00 97.7 78 20 147/104 (118) 99 02/17/18 04:00 97.9 77 18 132/69 (90) 96 02/17/18 00:00 98.7 71 19 160/74 (102) 95 02/16/18 21:00 Room Air 02/16/18 20:00 97.7 85 19 125/82 (96) 96 02/16/18 16:00 97.5 83 18 143/87 (105) 94 02/16/18 12:10 98.1 77 18 144/92 (109) 96 02/16/18 12:02 97.8 I&O Intake and Output 02/16/18 02/17/18 19:00 07:00 Intake Total 392.5 ml 1000 ml Balance 392.5 ml 1000 ml Intake IV Total 392.5 ml 1000 ml Drains: none Cardiovascular: RSR Respiratory: clear Abdomen: soft, flat, non-tender, present bowel sounds Extremities: no tenderness, no cyanosis Laboratory Tests Test 02/17/18 06:10 White Blood Count 16.6 K/UL (4.8-10.8) H Red Blood Count 4.53 M/UL (4.70-6.10) L Hemoglobin 13.5 G/DL (14.2-18.0) L Hematocrit 39.1 % (42.0-52.0) L Mean Corpuscular Volume 86 FL (80-99) Mean Corpuscular Hemoglobin 29.8 PG (27.0-31.0) Mean Corpuscular Hemoglobin Concent 34.6 G/DL (32.0-36.0) Red Cell Distribution Width 11.3 % (11.6-14.8) L Platelet Count 465 K/UL (150-450) H Mean Platelet Volume 5.8 FL (6.5-10.1) L Neutrophils (%) (Auto) 79.0 % (45.0-75.0) H Lymphocytes (%) (Auto) 10.6 % (20.0-45.0) L Monocytes (%) (Auto) 8.0 % (1.0-10.0) Eosinophils (%) (Auto) 1.7 % (0.0-3.0) Basophils (%) (Auto) 0.8 % (0.0-2.0) Erythrocyte Sedimentation Rate 34 MM/HR (0-15) H Sodium Level 136 MMOL/L (136-145) Potassium Level 3.4 MMOL/L (3.5-5.1) L Chloride Level 99 MMOL/L (98-107) Carbon Dioxide Level 25 MMOL/L (21-32) Anion Gap 12 mmol/L (5-15) Blood Urea Nitrogen 5 mg/dL (7-18) L Creatinine 1.0 MG/DL (0.55-1.30) Estimat Glomerular Filtration Rate > 60 mL/min (>60) Glucose Level 108 MG/DL (74-106) H Calcium Level 9.7 MG/DL (8.5-10.1) C-Reactive Protein, Quantitative 28.4 mg/dL (0.00-0.90) H Plan Problems: (1) Diverticulitis Assessment & Plan: uncomplicated sigmoid diverticulitis with microperf. states microperf present during last CT at [facility]. no abscess or jeri perforation noted. on exam tender. afebrile, HD stable, leukocytosis exam improved labs improved cont with full liquids iv fluids iv abx will monitor exam clinically hold repeat CT for now once pain resolved and labs okay can d/c with oral abx if worsening will need surgery will follow with recs. cont with medical treatment of sigmoid diverticulitis for now thank you Rigo Yu Feb 17, 2018 10:14
[2018-02-17] MEDS: Enoxaparin 40mg Inj SUBQ SCH (11:25)
[2018-02-17 12:00] VITALS: BP 142/91
--- NOTE | 2018-02-17 13:09 | Infectious Diseases Prog Note ---
Assessment/Plan Assessment/Plan Abx: Flagyl x1 02/14 Zosyn 02/14- Assessment: Acute sigmoid diverticulitis w/ microperforation -CT abd/p: Acute diverticulitis versus colitis in the sigmoid colon. Segmental wall thickening involving approximately 10-12 cm of the proximal and mid sigmoid colon with adjacent inflammatory stranding and adjacent trace foci of extraluminal free air, suggesting microperforation. Leukocytosis, improving -u/a neg Fever, improving Plan: -Continue Zosyn #4/-14 for diverticulitis w/ microperforation -expect transitioning to PO Cipro and Flagyl upon discharge -f/u cx -Bcx x2 -Monitor CBC/CMP, temperatures -Sx f/u Thank you for this consultation. Will continue to follow along with you. Discussed with RN. Subjective Allergies: Coded Allergies: No Known Allergies (Unverified , 02/14/18) Subjective afebrile in 36hrs Bcx NTD Objective Vital Signs Last 24 Hour Vital Signs Date Time Temp Pulse Resp B/P (MAP) Pulse Ox O2 Delivery O2 Flow Rate FiO2 02/17/18 09:00 Room Air 02/17/18 08:49 97.9 02/17/18 08:00 97.7 78 20 147/104 (118) 99 02/17/18 04:00 97.9 77 18 132/69 (90) 96 02/17/18 00:00 98.7 71 19 160/74 (102) 95 02/16/18 21:00 Room Air 02/16/18 20:00 97.7 85 19 125/82 (96) 96 02/16/18 16:00 97.5 83 18 143/87 (105) 94 Height (Feet): 6 Height (Inches): 0.00 Weight (Pounds): 255 Objective GENERAL: The patient awake, in mild distress. HEENT: Extraocular muscles intact. No lymphadenopathy. Oropharyngeal mucosa clear and dry. CARDIOVASCULAR: S1 and S2. No rubs or gallops. PULMONARY: Clear to auscultation bilaterally. No rales, rhonchi or wheezes. ABDOMEN: Nondistended and nontender. EXTREMITIES: No edema. Microbiology Date/Time Source Procedure Growth Status 02/15/18 11:15 Blood Blood Culture - Preliminary NO GROWTH AFTER 24 HOURS Resulted 02/15/18 11:05 Blood Blood Culture - Preliminary NO GROWTH AFTER 24 HOURS Resulted 02/14/18 17:30 Nasal Nares MRSA Culture - Final NO METHICILLIN RESISTANT STAPH AUREUS... Complete 02/14/18 17:30 Rectum VRE Culture - Final NO VANCOMYCIN RESISTANT ENTEROCOCCUS ... Complete 02/14/18 17:30 Rectum - Final NO CARBAPENEM-RESISTANT ENTEROBACTERI... Complete Laboratory Tests Test 02/17/18 06:10 White Blood Count 16.6 K/UL (4.8-10.8) H Red Blood Count 4.53 M/UL (4.70-6.10) L Hemoglobin 13.5 G/DL (14.2-18.0) L Hematocrit 39.1 % (42.0-52.0) L Mean Corpuscular Volume 86 FL (80-99) Mean Corpuscular Hemoglobin 29.8 PG (27.0-31.0) Mean Corpuscular Hemoglobin Concent 34.6 G/DL (32.0-36.0) Red Cell Distribution Width 11.3 % (11.6-14.8) L Platelet Count 465 K/UL (150-450) H Mean Platelet Volume 5.8 FL (6.5-10.1) L Neutrophils (%) (Auto) 79.0 % (45.0-75.0) H Lymphocytes (%) (Auto) 10.6 % (20.0-45.0) L Monocytes (%) (Auto) 8.0 % (1.0-10.0) Eosinophils (%) (Auto) 1.7 % (0.0-3.0) Basophils (%) (Auto) 0.8 % (0.0-2.0) Erythrocyte Sedimentation Rate 34 MM/HR (0-15) H Sodium Level 136 MMOL/L (136-145) Potassium Level 3.4 MMOL/L (3.5-5.1) L Chloride Level 99 MMOL/L (98-107) Carbon Dioxide Level 25 MMOL/L (21-32) Anion Gap 12 mmol/L (5-15) Blood Urea Nitrogen 5 mg/dL (7-18) L Creatinine 1.0 MG/DL (0.55-1.30) Estimat Glomerular Filtration Rate > 60 mL/min (>60) Glucose Level 108 MG/DL (74-106) H Calcium Level 9.7 MG/DL (8.5-10.1) C-Reactive Protein, Quantitative 28.4 mg/dL (0.00-0.90) H Current Medications Medications (Trade) Dose Ordered Sig/Lulu Route PRN Reason Start Time Stop Time Status Last Admin Dose Admin Acetaminophen (Tylenol) 650 mg Q6H PRN ORAL Mild Pain/Temp > 100.5 02/15/18 22:00 03/17/18 21:59 Dextrose 1,000 ml @ 100 mls/hr Q10H IV 02/14/18 10:46 03/16/18 10:45 02/17/18 09:38 Dextrose (Dextrose 50%) 25 ml Q30M PRN IV Hypoglycemia 02/14/18 10:00 03/16/18 09:59 Dextrose (Dextrose 50%) 50 ml Q30M PRN IV Hypoglycemia 02/14/18 10:00 03/16/18 09:59 Docusate Sodium (Colace) 100 mg TWICE A DAY ORAL 02/16/18 18:00 03/18/18 17:59 02/17/18 08:19 Enoxaparin Sodium (Lovenox) 40 mg Q24H SUBQ 02/14/18 11:00 03/16/18 10:59 02/17/18 11:25 Iopamidol (Isovue-300 100ml) 100 ml NOW PRN INJ Radiology Procedure 02/14/18 07:15 Morphine Sulfate (Morphine Sulfate) 1 mg Q3H PRN IVP For Pain 02/16/18 13:30 02/23/18 13:29 02/17/18 11:26 Ondansetron HCl (Zofran) 4 mg Q6H PRN IVP Nausea & Vomiting 02/14/18 10:00 03/16/18 09:59 Piperacillin Sod/ Tazobactam Sod 3.375 gm/Sodium Chloride 110 ml @ 27.5 mls/hr Q8H IVPB 02/14/18 16:00 02/21/18 15:59 02/17/18 08:18 Esperanza Mike M.D. Feb 17, 2018 13:09
[2018-02-17] MEDS ORDERED: Tubing IV Secondary IV ONE ×2 (15:27)
[2018-02-17] MEDS ORDERED: NS 275ml ONE (15:43)
[2018-02-17 16:00] VITALS: BP 137/95
[2018-02-17 20:00] VITALS: BP 134/80
[2018-02-18] VITALS: BP 124/69
[2018-02-18] MEDS: Piperacillin/Tazobactam 3.375 GM in NS 110 ML IVPB SCH ×2 (00:02→08:27)
[2018-02-18 04:00] VITALS: BP 143/95
[2018-02-18] MEDS: Morphine Sulfate 2mg/ml Inj IVP PRN (06:00)
[2018-02-18 08:00] VITALS: BP 141/90
[2018-02-18] MEDS: Docusate 100mg cap ORAL SCH (08:27)
--- NOTE | 2018-02-18 09:35 | Nephrology Progress Note ---
Assessment/Plan Assessment/Plan A/P 1) Abd Pain- uncomplicated sigmoid diverticulitis - DC patient today if leukocytosis resolved - Abx po at DC today per ID 2. DVT prophylaxsis - lovenox Subjective Date patient seen: Feb 18, 2018 Time patient seen: 09:34 ROS Limited/Unobtainable: No Allergies: Coded Allergies: No Known Allergies (Unverified , 02/14/18) Subjective Abd pain resolving. Patient much improved Objective Last 24 Hour Vital Signs Date Time Temp Pulse Resp B/P (MAP) Pulse Ox O2 Delivery O2 Flow Rate FiO2 02/18/18 06:30 98.3 02/18/18 04:00 98.3 66 18 143/95 (111) 98 02/18/18 00:00 98.1 86 17 124/69 (87) 97 02/17/18 21:00 Room Air 02/17/18 20:00 97.8 83 18 134/80 (98) 97 02/17/18 16:00 98.5 76 18 137/95 (109) 96 02/17/18 12:00 98.7 82 20 142/91 (108) 98 Intake and Output 02/17/18 02/18/18 18:59 06:59 Intake Total 1265.0 ml 2617.5 ml Output Total 900 ml Balance 1265.0 ml 1717.5 ml Intake Oral 1780 ml IV Total 1265.0 ml 837.5 ml Output Urine Total 900 ml # Voids 8 # Bowel Movements 1 Height (Feet): 6 Height (Inches): 0.00 Weight (Pounds): 255 General Appearance: no apparent distress, alert EENT: normal ENT inspection Neck: normal alignment, supple Cardiovascular: normal rate, regular rhythm Respiratory/Chest: lungs clear, normal breath sounds Abdomen: non tender, soft Edema: no edema noted Arm (L), no edema noted Arm (R), no edema noted Leg (L), no edema noted Leg (R), no edema noted Pedal (L), no edema noted Pedal (R), no edema noted Generalized Rafael Francis MD Feb 18, 2018 09:35
[2018-02-18] MEDS ORDERED: Morphine Sulfate 4mg/ml Inj (IV/IM USE ONLY) IVP PRN (10:30)
[2018-02-18 10:49] LABS: BASOPHILS % (AUTO) 1.6 % (0.0-2.0); EOSINOPHILS % (AUTO) 2.1 % (0.0-3.0); HEMATOCRIT 43.3 % (42.0-52.0); HEMOGLOBIN 14.7 G/DL (14.2-18.0); MEAN CORPUSCULAR VOLUME 87 FL (80-99); NEUTROPHILS % (AUTO) 73.3 % (45.0-75.0); PLATELET COUNT 515 K/UL (150-450); RED BLOOD COUNT 4.96 M/UL (4.70-6.10); RED CELL DISTRIBUTION WIDTH 11.3 % (11.6-14.8); WHITE BLOOD COUNT 12.9 K/UL (4.8-10.8)
[2018-02-18 11:00] LABS: ANION GAP 7 mmol/L (5-15); BLOOD UREA NITROGEN 3 mg/dL (7-18); CALCIUM 9.6 MG/DL (8.5-10.1); CARBON DIOXIDE 30 MMOL/L (21-32); CHLORIDE 100 MMOL/L (98-107); POTASSIUM 3.5 MMOL/L (3.5-5.1); SODIUM 137 MMOL/L (136-145)
[2018-02-18] MEDS: Enoxaparin 40mg Inj SUBQ SCH (11:20)
[2018-02-18 12:00] VITALS: BP 132/73
--- NOTE | 2018-02-18 12:33 | Discharge Instructions ---
Discharge Instructions Discharge Instructions Services at Discharge: day care Resume Normal Activity?: Yes Activity: light activity Follow Up Orders Follow up PCP 1 week For Congestive Heart Failure Reminder Report to your physician any weight gain of 5 pounds or more in one week. Rafael Francis MD Feb 18, 2018 12:33
--- NOTE | 2018-02-18 12:39 | General Surgery Progress Note ---
General Surgery-Progress Note Subjective Symptoms: improved, pain absent, tolerating diet, passing flatus Objective Last 24 Hour Vital Signs Date Time Temp Pulse Resp B/P (MAP) Pulse Ox O2 Delivery O2 Flow Rate FiO2 02/18/18 12:00 98.5 62 20 132/73 (92) 98 02/18/18 11:11 98.3 02/18/18 09:00 Room Air 02/18/18 08:00 97.6 71 20 141/90 (107) 98 02/18/18 06:30 98.3 02/18/18 04:00 98.3 66 18 143/95 (111) 98 02/18/18 00:00 98.1 86 17 124/69 (87) 97 02/17/18 21:00 Room Air 02/17/18 20:00 97.8 83 18 134/80 (98) 97 02/17/18 16:00 98.5 76 18 137/95 (109) 96 I&O Intake and Output 02/17/18 02/18/18 19:00 07:00 Intake Total 1392.5 ml 2490 ml Output Total 900 ml Balance 1392.5 ml 1590 ml Intake Oral 1780 ml IV Total 1392.5 ml 710 ml Output Urine Total 900 ml # Voids 8 # Bowel Movements 1 Drains: none Cardiovascular: RSR Respiratory: clear Abdomen: soft, flat, non-tender, present bowel sounds Extremities: no tenderness, no cyanosis Laboratory Tests Test 02/18/18 10:00 White Blood Count 12.9 K/UL (4.8-10.8) H Red Blood Count 4.96 M/UL (4.70-6.10) Hemoglobin 14.7 G/DL (14.2-18.0) Hematocrit 43.3 % (42.0-52.0) Mean Corpuscular Volume 87 FL (80-99) Mean Corpuscular Hemoglobin 29.5 PG (27.0-31.0) Mean Corpuscular Hemoglobin Concent 33.8 G/DL (32.0-36.0) Red Cell Distribution Width 11.3 % (11.6-14.8) L Platelet Count 515 K/UL (150-450) H Mean Platelet Volume 6.0 FL (6.5-10.1) L Neutrophils (%) (Auto) 73.3 % (45.0-75.0) Lymphocytes (%) (Auto) 17.0 % (20.0-45.0) L Monocytes (%) (Auto) 6.0 % (1.0-10.0) Eosinophils (%) (Auto) 2.1 % (0.0-3.0) Basophils (%) (Auto) 1.6 % (0.0-2.0) Sodium Level 137 MMOL/L (136-145) Potassium Level 3.5 MMOL/L (3.5-5.1) Chloride Level 100 MMOL/L (98-107) Carbon Dioxide Level 30 MMOL/L (21-32) Anion Gap 7 mmol/L (5-15) Blood Urea Nitrogen 3 mg/dL (7-18) L Creatinine 1.0 MG/DL (0.55-1.30) Estimat Glomerular Filtration Rate > 60 mL/min (>60) Glucose Level 90 MG/DL (74-106) Calcium Level 9.6 MG/DL (8.5-10.1) Plan Problems: (1) Diverticulitis Assessment & Plan: uncomplicated sigmoid diverticulitis with microperf. states microperf present during last CT at [facility]. no abscess or jeri perforation noted. on exam tender. afebrile, HD stable, leukocytosis exam improved labs improved cont with full liquids oral abx d/c home outpatient f/u with pcp and surgeon thank you Rigo Yu Feb 18, 2018 12:39
[2018-02-18] MEDS ORDERED: METRONIDAZOLE500 MG ORAL (12:44)
[2018-02-18] MEDS ORDERED: CIPRO500 MG PO (12:45)
--- NOTE | 2018-02-19 10:50 | Discharge Summary ---
Discharge Summary Discharge Summary _ DATE OF ADMISSION: 02/14/2018 DATE OF DISCHARGE: 02/18/2018 DISCHARGED BY: Dr. Rafael Francis CONSULTANTS: Dr. Rigo Mike BRIEF HOSPITAL COURSE: Is a 37-year-old gentleman, who approximately 5 days developed abdominal pain after eating jalapeno seeds and apparently went to [facility] ER. In the emergency room, he was given pain medications and was discharged home. Over the last 4 days, the patient stated abdominal pain has gotten progressively worse. As such he presented to [place] emergency room for evaluation. On evaluation at the ED, blood work showed marked leukocytosis, WBC 21. Hemoglobin and hematocrit were stable. Electrolytes were normal. LFTs were normal. Lipase normal. Urine toxicology was positive for opiates and marijuana. CT of the abdomen and pelvis showed acute diverticulitis versus colitis in the sigmoid colon there was segmental wall thickening approximately 10-12 cm of the proximal and mid sigmoid colon with adjacent inflammatory stranding and adjacent trace foci of extraluminal free air suggestive of microperforation. Tarted on IV antibiotics and IV hydration. He was then admitted for evaluation of diverticulitis. Surgical evaluation was done. It was placed on n.p.o. Patient abdomen on examination was tender, however was afebrile and was hemodynamically stable. He had leukocytosis, ID was consulted and patient was started on Zosyn. He was monitored clinically; if worsening will eventually need surgery. He was placed on Lovenox for DVT prophylaxis. Following day, abdominal pain improved, leukocytosis improved, he was started on clear liquid diet. He was was tolerating diet well. He was passing flatus. Blood culture did not isolate any growth. He was eventually cleared for discharge to continue oral antibiotics and outpatient follow-up with PCP and surgeon. FINAL DIAGNOSES: Abdominal pain secondary to uncomplicated sigmoid diverticulitis DISPOSITION: Patient was discharged home. DISCHARGE MEDICATIONS: Refer to Discharge Medication List. Continue ciprofloxacin and Flagyl p.o. for 10 days. DISCHARGE INSTRUCTIONS: Follow-up with PCP and surgeon in a week. I have been assigned to dictate discharge summary on this account, and I was not involved in the patient's management. Adelina Teran NP Feb 19, 2018 10:50
== END 2018-02-18 13:40 | disposition home or self-care (01) | DRG 244 ==
LOC: EMR 06:51 → 4E 08:58 → EDBEDREQ 10:12 → 3E 02-16 18:37
DX: K57.20 Diverticulitis of large intestine with perforation and abscess without bleeding (principal); E86.0 Dehydration
CPT/HCPCS: 36415; 74177; 80048; 80053; 80307; 81003; 83690; 85007; 85025; 85651; 86140; 87040; 87081; 96361; 96365; 96368; 96375; 99282; 99285; J8499

== ENCOUNTER 2018-03-13 03:54 | Inpatient (IN) | payer OTHER ==
[~2018-03-13] VITALS: Ht 182.9 cm; Wt 113.4 kg
[2018-03-13] VITALS (7 sets, daily range): BP systolic 109–151; BP diastolic 57–93
[~2018-03-13 03:54] MED LIST: CIPRO500 MG PO; HYDROCODON-ACE1 EA15 ORAL; LEVOFLOXACIN500 MG ORAL; METRONIDAZOLE500 MG ORAL
[2018-03-13] MEDS ORDERED: NKM (04:07)
--- NOTE | 2018-03-13 04:25 | NUR ---
ED Nurse Note: Patient walk in to ED c/o left lower abdomen pain for 1x day. patient reports pain as sharp and stabbing. Patient states pain radiates to right lower abdomen. Patient denies N/V/D. Patient states the pain feels the same as last month when he was admitted for diverticulitis. Patient seen by ERMD at bedside. Patient has active bowel sounds in all 4 quadrants. Patient AOx4, VSS, ambulatory with steady gait, no s/s of acute distress noted at this time.
[2018-03-13] MEDS ORDERED: Morphine Sulfate 4mg/ml Inj (IV USE ONLY) IVP ONE (04:30)
[2018-03-13] MEDS ORDERED: Ketorolac 30mg Inj IV ONE (04:30)
[2018-03-13] MEDS ORDERED: Isovue-300 100ml vial INJ PRN (04:30)
--- NOTE | 2018-03-13 04:34 | NUR ---
ED Nurse Note: Consent for CT with contrast is signed.
[2018-03-13 04:43] LABS: BASOPHILS % (AUTO) 0.9 % (0.0-2.0); EOSINOPHILS % (AUTO) 2.1 % (0.0-3.0); HEMATOCRIT 42.9 % (42.0-52.0); HEMOGLOBIN 14.5 G/DL (14.2-18.0); LYMPHOCYTES % (AUTO) 16.4 % (20.0-45.0); MEAN CORPUSCULAR VOLUME 86 FL (80-99); MONOCYTES % (AUTO) 7.7 % (1.0-10.0); NEUTROPHILS % (AUTO) 72.9 % (45.0-75.0); PLATELET COUNT 318 K/UL (150-450); RED BLOOD COUNT 4.96 M/UL (4.70-6.10); RED CELL DISTRIBUTION WIDTH 12.4 % (11.6-14.8); WHITE BLOOD COUNT 11.8 K/UL (4.8-10.8)
[2018-03-13 04:54] LABS: ANION GAP 9 mmol/L (5-15); BLOOD UREA NITROGEN 16 mg/dL (7-18); CARBON DIOXIDE 25 MMOL/L (21-32); CHLORIDE 105 MMOL/L (98-107); CREATININE 0.9 MG/DL (0.55-1.30); POTASSIUM 3.6 MMOL/L (3.5-5.1); SODIUM 139 MMOL/L (136-145)
[2018-03-13 04:58] LABS: ALANINE AMINOTRANSFERASE 48 U/L (12-78); ALBUMIN 3.7 G/DL (3.4-5.0); ALKALINE PHOSPHATASE 77 U/L (46-116); ASPARTATE AMINO TRANSFERASE 14 U/L (15-37); BILIRUBIN,TOTAL 0.4 MG/DL (0.2-1.0)
--- NOTE | 2018-03-13 05:15 | Emergency Room Report ---
History of Present Illness General Chief Complaint: Abdominal Pain Source: Patient (Yogesh Forman MD) Present Illness HPI 37-year-old male presents ED for evaluation. Patient states that he's having abdominal pain which started this morning. Left lower quadrant, sharp, 8 out of 10, nonradiating. States that he's had diverticulitis twice in the last few months. Was discharged from here in January. Denies fevers or chills. Denies nausea or vomiting. Denies any blood in his stool. States he's been compliant with his diet. No other aggravating or relieving factors. Denies any other associated symptoms (Yogesh Forman MD) Allergies: Coded Allergies: No Known Allergies (Unverified , 02/14/18) Patient History Past Medical History: other - diverticulitis Past Surgical History: none Pertinent Family History: none Social History: Denies: smoking, alcohol use, drug use Immunizations: UTD Reviewed Nursing Documentation: PMH: Agreed; PSxH: Agreed (Yogesh Forman MD) Nursing Documentation-PMH Hx Cardiac Problems: No Hx Cancer: No Hx Gastrointestinal Problems: Yes - diverticulitis Hx Neurological Problems: No (Yogesh Forman MD) Review of Systems All Other Systems: negative except mentioned in HPI (Yogesh Forman MD) Physical Exam Vital Signs Date Time Temp Pulse Resp B/P (MAP) Pulse Ox O2 Delivery O2 Flow Rate FiO2 03/13/18 04:01 97.9 83 18 143/83 96 Room Air Sp02 EP Interpretation: reviewed, normal General Appearance: no apparent distress, alert, GCS 15, non-toxic Head: normocephalic, atraumatic Eyes: bilateral eye normal inspection, bilateral eye PERRL ENT: hearing grossly normal, normal pharynx, no angioedema, normal voice Neck: full range of motion, supple/symm/no masses Respiratory: chest non-tender, lungs clear, normal breath sounds, speaking full sentences Cardiovascular #1: regular rate, rhythm, no edema Cardiovascular #2: 2+ carotid (R), 2+ carotid (L), 2+ radial (R), 2+ radial (L) , 2+ dorsalis pedis (R), 2+ dorsalis pedis (L) Gastrointestinal: normal bowel sounds, soft, non-distended, no guarding, no rebound, tenderness - LLQ Rectal: deferred Genitourinary: normal inspection, no CVA tenderness Musculoskeletal: back normal, gait/station normal, normal range of motion, non- tender Neurologic: alert, oriented x3, responsive, motor strength/tone normal, sensory intact, speech normal Psychiatric: judgement/insight normal, memory normal, mood/affect normal, no suicidal/homicidal ideation Reflexes: 3+ bicep (R), 3+ bicep (L), 3+ tricep (R), 3+ tricep (L), 3+ knee (R) , 3+ knee (L) Skin: normal color, no rash, warm/dry, well hydrated Lymphatic: no adenopathy (Yogesh Forman MD) Medical Decision Making Diagnostic Impression: Primary Impression: Diverticulitis Labs Test 03/13/18 04:30 White Blood Count 11.8 K/UL (4.8-10.8) Red Blood Count 4.96 M/UL (4.70-6.10) Hemoglobin 14.5 G/DL (14.2-18.0) Hematocrit 42.9 % (42.0-52.0) Mean Corpuscular Volume 86 FL (80-99) Mean Corpuscular Hemoglobin 29.2 PG (27.0-31.0) Mean Corpuscular Hemoglobin Concent 33.8 G/DL (32.0-36.0) Red Cell Distribution Width 12.4 % (11.6-14.8) Platelet Count 318 K/UL (150-450) Mean Platelet Volume 6.7 FL (6.5-10.1) Neutrophils (%) (Auto) 72.9 % (45.0-75.0) Lymphocytes (%) (Auto) 16.4 % (20.0-45.0) Monocytes (%) (Auto) 7.7 % (1.0-10.0) Eosinophils (%) (Auto) 2.1 % (0.0-3.0) Basophils (%) (Auto) 0.9 % (0.0-2.0) Sodium Level 139 MMOL/L (136-145) Potassium Level 3.6 MMOL/L (3.5-5.1) Chloride Level 105 MMOL/L (98-107) Carbon Dioxide Level 25 MMOL/L (21-32) Anion Gap 9 mmol/L (5-15) Blood Urea Nitrogen 16 mg/dL (7-18) Creatinine 0.9 MG/DL (0.55-1.30) Estimat Glomerular Filtration Rate > 60 mL/min (>60) Glucose Level 101 MG/DL (74-106) Calcium Level 9.0 MG/DL (8.5-10.1) Total Bilirubin 0.4 MG/DL (0.2-1.0) Aspartate Amino Transf (AST/SGOT) 14 U/L (15-37) Alanine Aminotransferase (ALT/SGPT) 48 U/L (12-78) Alkaline Phosphatase 77 U/L (46-116) Total Protein 7.3 G/DL (6.4-8.2) Albumin 3.7 G/DL (3.4-5.0) Globulin 3.6 g/dL Albumin/Globulin Ratio 1.0 (1.0-2.7) Lipase 329 U/L (73-393) (Yogesh Forman MD) ER Course With the history exam and presentation, multiple differentials considered, including but not limited to appendicitis, gastritis, cholecystitis, diverticulitis Please refer to the initial history and exam at this time blood work evaluated CT imaging is read by radiology as questionable acute diverticulitis versus improving from previous Patient's pain however was fairly significant this was consulted by general surgery and patient will be admitted for further inpatient care Labs Test 03/13/18 04:30 White Blood Count 11.8 K/UL (4.8-10.8) Red Blood Count 4.96 M/UL (4.70-6.10) Hemoglobin 14.5 G/DL (14.2-18.0) Hematocrit 42.9 % (42.0-52.0) Mean Corpuscular Volume 86 FL (80-99) Mean Corpuscular Hemoglobin 29.2 PG (27.0-31.0) Mean Corpuscular Hemoglobin Concent 33.8 G/DL (32.0-36.0) Red Cell Distribution Width 12.4 % (11.6-14.8) Platelet Count 318 K/UL (150-450) Mean Platelet Volume 6.7 FL (6.5-10.1) Neutrophils (%) (Auto) 72.9 % (45.0-75.0) Lymphocytes (%) (Auto) 16.4 % (20.0-45.0) Monocytes (%) (Auto) 7.7 % (1.0-10.0) Eosinophils (%) (Auto) 2.1 % (0.0-3.0) Basophils (%) (Auto) 0.9 % (0.0-2.0) Sodium Level 139 MMOL/L (136-145) Potassium Level 3.6 MMOL/L (3.5-5.1) Chloride Level 105 MMOL/L (98-107) Carbon Dioxide Level 25 MMOL/L (21-32) Anion Gap 9 mmol/L (5-15) Blood Urea Nitrogen 16 mg/dL (7-18) Creatinine 0.9 MG/DL (0.55-1.30) Estimat Glomerular Filtration Rate > 60 mL/min (>60) Glucose Level 101 MG/DL (74-106) Calcium Level 9.0 MG/DL (8.5-10.1) Total Bilirubin 0.4 MG/DL (0.2-1.0) Aspartate Amino Transf (AST/SGOT) 14 U/L (15-37) Alanine Aminotransferase (ALT/SGPT) 48 U/L (12-78) Alkaline Phosphatase 77 U/L (46-116) Total Protein 7.3 G/DL (6.4-8.2) Albumin 3.7 G/DL (3.4-5.0) Globulin 3.6 g/dL Albumin/Globulin Ratio 1.0 (1.0-2.7) Lipase 329 U/L (73-393) (Javier Carver DO) CT/MRI/US Diagnostic Results CT/MRI/US Diagnostic Results : Impression CT abdomen pelvisIMPRESSION: Paracolic infiltrative changes regional to the mid sigmoid colon, with mild concentric focal colonic wall thickening. It is unclear if this represents residual postinflammatory findings from the prior acute diverticulitis described on the previous exam 4 weeks ago, versus a new case of acute diverticulitis. Please correlate with site of patient's symptoms. No loculated fluid collection to suggest an abscess. No evidence of pneumoperitoneum. (Javier Carver DO) Last Vital Signs Date Time Temp Pulse Resp B/P (MAP) Pulse Ox O2 Delivery O2 Flow Rate FiO2 03/13/18 04:25 97.9 68 18 143/83 96 Room Air (Yogesh Forman MD) Status: improved (Javier Carver DO) Disposition: ADMITTED INPATIENT Condition: Serious Referrals: NOT CHOSEN IPA/,REFERRING (PCP) Yogesh Forman MD Mar 13, 2018 05:15 Javier Carver DO Mar 13, 2018 14:21
--- NOTE | 2018-03-13 06:45 | Diagnostic Imaging Report ---
EXAM: CT Abdomen and Pelvis With Intravenous Contrast. CLINICAL HISTORY: Abdominal pain. TECHNIQUE: Axial computed tomography images of the abdomen and pelvis with intravenous contrast. CTDI is 23.9 mGy and DLP is 1168 mGy-cm. One or more of the following dose reduction techniques were used: automated exposure control, adjustment of the mA and/or kV according to patient size, use of iterative reconstruction technique. COMPARISON: 02/14/18 FINDINGS: Lower thorax: No acute findings. ABDOMEN: Liver: Unremarkable. No mass. Gallbladder and bile ducts: Unremarkable. No calcified stones. No ductal dilation. Pancreas: Unremarkable. No ductal dilation. No mass. Spleen: Unremarkable. No splenomegaly. Adrenals: Unremarkable. No mass. Kidneys and ureters: Unremarkable. No hydronephrosis. No solid mass. PELVIS: Bladder: Unremarkable. No mass. Reproductive: Unremarkable as visualized. Appendix: No findings to suggest acute appendicitis. ABDOMEN + PELVIS: Stomach and bowel: Again seen are paracolic infiltrative changes regional to the mid sigmoid colon, improved when compared to the prior exam 4 weeks ago. Findings either represent residual postinflammatory changes from acute diverticulitis, or a new acute diverticulitis. No paracolic loculated fluid collection or extraluminal gas. No bowel obstruction. No small bowel wall thickening. Peritoneum: Unremarkable. No significant fluid collection. No free air. Lymph nodes: Unremarkable. No enlarged lymph nodes. Vasculature: Unremarkable. No aortic aneurysm. Bones: No acute fracture. IMPRESSION: Paracolic infiltrative changes regional to the mid sigmoid colon, with mild concentric focal colonic wall thickening. It is unclear if this represents residual postinflammatory findings from the prior acute diverticulitis described on the previous exam 4 weeks ago, versus a new case of acute diverticulitis. Please correlate with site of patient's symptoms. No loculated fluid collection to suggest an abscess. No evidence of pneumoperitoneum.
--- NOTE | 2018-03-13 07:20 | NUR ---
ED Nurse Note: Pt on bed comfortably, stated his pain is 6/10 baylee. AOx4, VSS.
--- NOTE | 2018-03-13 09:00 | NUR ---
ED Nurse Note: Pt sleeping on bed comfortably, vital signs stable, no sign of acute distress.
--- NOTE | 2018-03-13 10:20 | NUR ---
ED Nurse Note: [address] RN is not available to take report at this time. Will attempt again.
--- NOTE | 2018-03-13 10:38 | NUR ---
CASE MANAGEMENT: INITIAL REVIEW 03/13/2018 37 YO M PRESENTED TO OUR ED FROM HOME CC: ABD PAIN PMHx: DIVERTICULITIS. SI:DIVERTICULITIS. T 97.9 HR 83 RR 18 B/P 143/83 SATS 96% ON RA WBC 11.8 AST 14 IS: TORADOL IV X1 MORPHINE IV X1 NS BOLUS X1 LEVOFLOXACIN IV X1 FLAGYL IV X1 PATIENT ADMITTED TO MED/SURG 03/13/2018 @ 1010 DCP: PATIENT TO BE DISCHARGED TO HOME ONCE MEDICALLY CLEARED. PLAN OF CARE: GI CONSULT Addendum: 03/13/18 at 1508 by Yaneth Cordon INTERQUAL MET FOR ACUTE
--- NOTE | 2018-03-13 10:55 | NUR ---
ED Nurse Note: Report given to ARIA Gordon at ext [phone]. Pt to transfered to [facility] per protocol.
--- NOTE | 2018-03-13 12:19 | Infectious Diseases Prog Note ---
Assessment/Plan Assessment/Plan ID dIC # [id number] Assessment: recrurrent Acute sigmoid diverticulitis Leukocytosis, improving Afbeile Plan: -Continue Rocephin and Flagyl d# 1 -Monitor CBC/CMP, temperatures -Sx f/u Subjective Allergies: Coded Allergies: No Known Allergies (Unverified , 02/14/18) Objective Vital Signs Last 24 Hour Vital Signs Date Time Temp Pulse Resp B/P (MAP) Pulse Ox O2 Delivery O2 Flow Rate FiO2 03/13/18 11:30 Room Air 03/13/18 11:00 97.9 68 14 126/57 100 Room Air 03/13/18 11:00 97.9 68 14 126/57 100 Room Air 03/13/18 09:16 97.9 64 13 114/62 99 Room Air 03/13/18 07:03 97.9 58 13 109/57 98 Room Air 03/13/18 05:11 97.9 03/13/18 05:11 97.9 03/13/18 04:25 97.9 68 18 143/83 96 Room Air 03/13/18 04:25 83 18 Room Air 03/13/18 04:01 97.9 83 18 143/83 96 Room Air Height (Feet): 6 Weight (Pounds): 250 Laboratory Tests Test 03/13/18 04:30 White Blood Count 11.8 K/UL (4.8-10.8) H Red Blood Count 4.96 M/UL (4.70-6.10) Hemoglobin 14.5 G/DL (14.2-18.0) Hematocrit 42.9 % (42.0-52.0) Mean Corpuscular Volume 86 FL (80-99) Mean Corpuscular Hemoglobin 29.2 PG (27.0-31.0) Mean Corpuscular Hemoglobin Concent 33.8 G/DL (32.0-36.0) Red Cell Distribution Width 12.4 % (11.6-14.8) Platelet Count 318 K/UL (150-450) Mean Platelet Volume 6.7 FL (6.5-10.1) Neutrophils (%) (Auto) 72.9 % (45.0-75.0) Lymphocytes (%) (Auto) 16.4 % (20.0-45.0) L Monocytes (%) (Auto) 7.7 % (1.0-10.0) Eosinophils (%) (Auto) 2.1 % (0.0-3.0) Basophils (%) (Auto) 0.9 % (0.0-2.0) Sodium Level 139 MMOL/L (136-145) Potassium Level 3.6 MMOL/L (3.5-5.1) Chloride Level 105 MMOL/L (98-107) Carbon Dioxide Level 25 MMOL/L (21-32) Anion Gap 9 mmol/L (5-15) Blood Urea Nitrogen 16 mg/dL (7-18) Creatinine 0.9 MG/DL (0.55-1.30) Estimat Glomerular Filtration Rate > 60 mL/min (>60) Glucose Level 101 MG/DL (74-106) Calcium Level 9.0 MG/DL (8.5-10.1) Total Bilirubin 0.4 MG/DL (0.2-1.0) Aspartate Amino Transf (AST/SGOT) 14 U/L (15-37) L Alanine Aminotransferase (ALT/SGPT) 48 U/L (12-78) Alkaline Phosphatase 77 U/L (46-116) Total Protein 7.3 G/DL (6.4-8.2) Albumin 3.7 G/DL (3.4-5.0) Globulin 3.6 g/dL Albumin/Globulin Ratio 1.0 (1.0-2.7) Lipase 329 U/L (73-393) Current Medications Medications (Trade) Dose Ordered Sig/Lulu Route PRN Reason Start Time Stop Time Status Last Admin Dose Admin Acetaminophen (Tylenol) 650 mg Q4H PRN ORAL Mild Pain (Pain Scale 1-3) 03/13/18 10:30 04/12/18 10:29 Dextrose (Dextrose 50%) 25 ml Q30M PRN IV Hypoglycemia 03/13/18 10:30 04/12/18 10:29 Dextrose (Dextrose 50%) 50 ml Q30M PRN IV Hypoglycemia 03/13/18 10:30 04/12/18 10:29 Docusate Sodium (Colace) 100 mg EVERY 12 HOURS ORAL 03/13/18 10:30 04/12/18 10:29 Enoxaparin Sodium (Lovenox) 40 mg Q24H SUBQ 03/13/18 11:30 04/12/18 11:29 Famotidine (Pepcid) 40 mg DAILY ORAL 03/13/18 10:30 04/12/18 10:29 Iopamidol (Isovue-300 100ml) 100 ml NOW PRN INJ Radiology Procedure 03/13/18 04:30 Morphine Sulfate (Morphine Sulfate) 1 mg Q4H PRN IVP For Pain 03/13/18 10:30 03/20/18 10:29 Ondansetron HCl (Zofran) 4 mg Q6H PRN IVP Nausea & Vomiting 03/13/18 10:30 04/12/18 10:29 Sodium Chloride 1,000 ml @ 100 mls/hr Q10H IVLG 03/13/18 10:30 04/12/18 10:29 Rajesh Figueroa MD Mar 13, 2018 12:19
[2018-03-13] MEDS: Docusate 100mg cap ORAL SCH ×2 (12:29→21:17)
[2018-03-13] MEDS: Enoxaparin 40mg Inj SUBQ SCH (12:31)
[2018-03-13] MEDS ORDERED: cefTRIAXone 1 GM in D5W 55 ML IVPB SCH (14:00)
[2018-03-13] MEDS: Morphine Sulfate 4mg/ml Inj (IV USE ONLY) IVP PRN ×3 (14:25→23:32)
--- NOTE | 2018-03-13 14:45 | History and Physical Report ---
DATE OF ADMISSION: 03/13/2018 REASON FOR ADMISSION: Abdominal pain. HISTORY OF PRESENT ILLNESS: The patient is a 37-year-old gentleman, who had recently been admitted for diverticulitis, was successfully treated and sent home on antibiotics, was doing well until the patient states late last night he started having some pain again in his left lower quadrant. He has had two bouts of diverticulitis in the last few months. This would be his third. He was concerned that if he waited it will get progressively worse. As such, he presented himself to the emergency room for further evaluation and care. In the emergency room, CAT scan of the abdomen and pelvis was repeated, which showed pericolic infiltrative changes regional to the mid sigmoid colon with concentric focal colonic wall thickening. It was unclear if this represented post inflammatory findings from the previous diverticulitis from over a month ago versus a new case of diverticulitis. PAST MEDICAL HISTORY: Diverticulitis. PAST SURGICAL HISTORY: None. FAMILY HISTORY: None. SOCIAL HISTORY: No tobacco, alcohol, or illicit drug use. REVIEW OF SYSTEMS: NEUROLOGIC: The patient denies headache, change in vision, syncope, or presyncopal episodes. CARDIOVASCULAR: No current chest pain, palpitations, or angina. PULMONARY: No difficulty breathing, productive cough, or sputum. GASTROINTESTINAL/GENITOURINARY: The patient is having left lower quadrant abdominal pain. No nausea or vomiting. He is constipated. ENDOCRINOLOGY: No night sweats, fevers, or chills. MUSCULOSKELETAL: The patient is feeling weak, tired, and fatigue. LABORATORY DATA: Laboratories dated March 13, 2018, white cell count 11.8, hemoglobin 14.5, and platelet count . Sodium 139, potassium 3.6, creatinine 0.9. Normal LFTs. Albumin 3.7. PHYSICAL EXAMINATION: VITAL SIGNS: Blood pressure 126/57, respiratory rate 14, pulse 68, and temperature 97.9. GENERAL: The patient awake, alert, no distress. HEENT: Extraocular muscles intact. No lymphadenopathy noted. Oropharyngeal mucosa clear and dry. CARDIOVASCULAR: S1 and S2. No rubs or gallops. Regular rate. PULMONARY: Clear to auscultation bilaterally. No rales, rhonchi or wheezes. ABDOMEN: Mild tenderness in left lower quadrant. Fair bowel sounds. EXTREMITIES: No edema noted. ASSESSMENT AND PLAN: 1. Abdomen pain secondary to possible diverticulitis. We initiate IV antibiotics and General Surgery has been consulted for further evaluation and management, proceeding as this will be a third bout of diverticulitis in the last two to three months. 2. Leukocytosis. Elevated white count could be secondary to pain versus repeat diverticulitis. IV antibiotics. Infectious Disease has been consulted. 3. DVT prophylaxis with Lovenox. Rafael Francis MD DR: HALEY JOB#: [id number] CC:
--- NOTE | 2018-03-13 17:29 | Consultation ---
History of Present Illness General Date patient seen: Mar 13, 2018 Chief Complaint: Abdominal Pain Reason for Consultation: diverticulitis Present Illness HPI 37 year old male well known to me from recent admission who presents with abdominal pain. Patient recently admitted for acute attack of diverticulitis which was uncomplicated and resolved with medical inpatient management. patient was discharged on oral abx and has been well since. Last night developed some abdominal discomfort in the lower abdomen and decided to come to ED for evaluation. No n/v/f/c. States different then prior episode but was unsure so came for evaluation. cramping lower abdominal pain. wbc 11k. CT as below. currently states he feels much better. Allergies: Coded Allergies: No Known Allergies (Unverified , 02/14/18) Medication History Scheduled Ciprofloxacin* (Cipro*), 500 MG PO BID, (Reported) Metronidazole* (Flagyl*), 500 MG ORAL TID, (Reported) No Known Medications* (NKM - No Known Medications*), 0 ., (Reported) Patient History History Provided By: Patient, Medical Record, PMD Healthcare decision maker N Resuscitation status Full Code Advanced Directive on File No Past Medical/Surgical History Past Medical/Surgical History: (1) Diverticulitis Review of Systems Constitutional: Denies: no symptoms, see HPI, chills, sweats, fever, malaise, weakness, other Eye: Denies: no symptoms, see HPI, eye pain, blurred vision, tearing, double vision, nose pain, nose congestion, acuity changes, discharge, other ENT: Denies: no symptoms, see HPI, ear pain, ear discharge, nose pain, nose congestion, throat pain, throat swelling, mouth pain, hearing loss, nasal discharge, other Respiratory: Denies: no symptoms, see HPI, cough, orthopnea, shortness of breath, stridor, wheezing, LEWIS, sputum, other Cardiovascular: Denies: no symptoms, see HPI, chest pain, edema, palpitations, syncope, PND, other Gastrointestinal: Reports: abdominal pain, constipation Genitourinary: Denies: no symptoms, see HPI, discharge, dysuria, frequency, hematuria, pain, retention, incontinence, urgency, vag bleed/dc, other Musculoskeletal: Denies: no symptoms, see HPI, back pain, gout, joint pain, joint swelling, muscle pain, muscle stiffness, other Skin: Denies: no symptoms, see HPI, rash, change in color, change in hair/nails , dryness, lesions, other Psychiatric: Denies: no symptoms, see HPI, prior hx, anxiety, depressed feelings, emotional problems, SI, HI, hallucinations, other Neurological: Denies: no symptoms, see HPI, headache, numbness, paresthesia, seizure, tingling, tremors, focal weakness, syncope, dizziness, other Endocrine: Denies: no symptoms, see HPI, excessive sweating, flushing, intolerance to temperature, increased thirst, increased urine, unexplained weight loss, other Hematologic/Lymphatic: Denies: no symptoms, see HPI, anemia, blood clots, easy bleeding, easy bruising, swollen glands, diathesis, other Physical Exam General Appearance: no apparent distress, alert Lines, tubes and drains: peripheral HEENT: normocephalic, atraumatic, mucous membranes moist Neck: normal alignment, supple Respiratory/Chest: normal breath sounds, no respiratory distress, no accessory muscle use Cardiovascular/Chest: normal rate, regular rhythm Abdomen: normal bowel sounds, non tender, soft, no organomegaly, no mass Extremities: normal inspection Skin Exam: warm/dry Neurologic: alert, oriented x 3 Last 24 Hour Vital Signs Date Time Temp Pulse Resp B/P (MAP) Pulse Ox O2 Delivery O2 Flow Rate FiO2 03/13/18 16:00 97.7 64 145/88 (107) 03/13/18 12:00 97.4 72 135/74 (94) 03/13/18 11:30 Room Air 03/13/18 11:00 97.9 68 14 126/57 100 Room Air 03/13/18 11:00 97.9 68 14 126/57 100 Room Air 03/13/18 09:16 97.9 64 13 114/62 99 Room Air 03/13/18 07:03 97.9 58 13 109/57 98 Room Air 03/13/18 05:11 97.9 03/13/18 05:11 97.9 03/13/18 04:25 97.9 68 18 143/83 96 Room Air 03/13/18 04:25 83 18 Room Air 03/13/18 04:01 97.9 83 18 143/83 96 Room Air Intake and Output 03/12/18 03/13/18 18:59 06:59 # Voids 1 Laboratory Tests Test 03/13/18 04:30 White Blood Count 11.8 K/UL (4.8-10.8) H Red Blood Count 4.96 M/UL (4.70-6.10) Hemoglobin 14.5 G/DL (14.2-18.0) Hematocrit 42.9 % (42.0-52.0) Mean Corpuscular Volume 86 FL (80-99) Mean Corpuscular Hemoglobin 29.2 PG (27.0-31.0) Mean Corpuscular Hemoglobin Concent 33.8 G/DL (32.0-36.0) Red Cell Distribution Width 12.4 % (11.6-14.8) Platelet Count 318 K/UL (150-450) Mean Platelet Volume 6.7 FL (6.5-10.1) Neutrophils (%) (Auto) 72.9 % (45.0-75.0) Lymphocytes (%) (Auto) 16.4 % (20.0-45.0) L Monocytes (%) (Auto) 7.7 % (1.0-10.0) Eosinophils (%) (Auto) 2.1 % (0.0-3.0) Basophils (%) (Auto) 0.9 % (0.0-2.0) Sodium Level 139 MMOL/L (136-145) Potassium Level 3.6 MMOL/L (3.5-5.1) Chloride Level 105 MMOL/L (98-107) Carbon Dioxide Level 25 MMOL/L (21-32) Anion Gap 9 mmol/L (5-15) Blood Urea Nitrogen 16 mg/dL (7-18) Creatinine 0.9 MG/DL (0.55-1.30) Estimat Glomerular Filtration Rate > 60 mL/min (>60) Glucose Level 101 MG/DL (74-106) Calcium Level 9.0 MG/DL (8.5-10.1) Total Bilirubin 0.4 MG/DL (0.2-1.0) Aspartate Amino Transf (AST/SGOT) 14 U/L (15-37) L Alanine Aminotransferase (ALT/SGPT) 48 U/L (12-78) Alkaline Phosphatase 77 U/L (46-116) Total Protein 7.3 G/DL (6.4-8.2) Albumin 3.7 G/DL (3.4-5.0) Globulin 3.6 g/dL Albumin/Globulin Ratio 1.0 (1.0-2.7) Lipase 329 U/L (73-393) Height (Feet): 6 Weight (Pounds): 250 Medications Current Medications Medications (Trade) Dose Ordered Sig/Lulu Route PRN Reason Start Time Stop Time Status Last Admin Dose Admin Acetaminophen (Tylenol) 650 mg Q4H PRN ORAL Mild Pain (Pain Scale 1-3) 03/13/18 10:30 04/12/18 10:29 Ceftriaxone Sodium 1 gm/ Dextrose 55 ml @ 110 mls/hr Q24H IVPB 03/13/18 14:00 03/20/18 13:59 03/13/18 15:23 Dextrose (Dextrose 50%) 25 ml Q30M PRN IV Hypoglycemia 03/13/18 10:30 04/12/18 10:29 Dextrose (Dextrose 50%) 50 ml Q30M PRN IV Hypoglycemia 03/13/18 10:30 04/12/18 10:29 Docusate Sodium (Colace) 100 mg EVERY 12 HOURS ORAL 03/13/18 10:30 04/12/18 10:29 03/13/18 12:29 Enoxaparin Sodium (Lovenox) 40 mg Q24H SUBQ 03/13/18 11:30 04/12/18 11:29 03/13/18 12:31 Famotidine (Pepcid) 40 mg DAILY ORAL 03/13/18 10:30 04/12/18 10:29 03/13/18 12:29 Iopamidol (Isovue-300 100ml) 100 ml NOW PRN INJ Radiology Procedure 03/13/18 04:30 Metronidazole 100 ml @ 100 mls/hr Q8HR IVPB 03/13/18 14:00 03/20/18 13:59 03/13/18 14:24 Morphine Sulfate (Morphine Sulfate) 1 mg Q4H PRN IVP For Pain 03/13/18 10:30 03/20/18 10:29 03/13/18 14:25 Ondansetron HCl (Zofran) 4 mg Q6H PRN IVP Nausea & Vomiting 03/13/18 10:30 04/12/18 10:29 Sodium Chloride 1,000 ml @ 100 mls/hr Q10H IVLG 03/13/18 10:30 04/12/18 10:29 03/13/18 10:30 Assessment/Plan Problem List: (1) Diverticulitis Assessment & Plan: 37M with recent episode of acute uncomplicated diverticulitis presents with abdominal pain. pain improved since admission. no n/v/f/c. labs noted. CT with likely residual inflammation from prior -trial po diet -cont abx for now -will monitor clinically. thank you will follow with recs. ICD Codes: K57.92 - Diverticulitis of intestine, part unspecified, without perforation or abscess without bleeding SNOMED: [id number] Status: stable Rigo Yu Mar 13, 2018 17:29
--- NOTE | 2018-03-13 19:22 | NUR ---
HAND-OFF: Report given to ARIA Rubio. pt was stable condition.
--- NOTE | 2018-03-13 19:48 | NUR ---
NURSE NOTES: Pt received, awake, alert, oriented, talking on his phone, bed in lowest position, call light within reach, able to make needs known.
[2018-03-13] MEDS ORDERED: Tubing IV Secondary IV ONE (19:55)
--- NOTE | 2018-03-13 20:00 | Consultation ---
DATE OF CONSULTATION: 03/13/2018 INFECTIOUS DISEASES CONSULTATION CONSULTING PHYSICIAN: Rajesh Figueroa M.D. REFERRING PHYSICIAN: Rafael Francis M.D. REASON FOR CONSULTATION: Evaluation of the patient for diverticulitis, antibiotic management. HISTORY OF PRESENT ILLNESS: The patient is a 37-year-old male with multiple medical problems with past medical history of diverticulitis with microperforation, who came to the hospital with the chief complaint of left lower quadrant abdominal pain. The patient underwent CT scan that showed evidence of inflammatory changes in the mid sigmoid colon. Infectious Disease consultation has been requested for further evaluation of the patient's antibiotic management. PAST MEDICAL HISTORY: 1. Significant for diverticulitis with microperforation about a month ago. 2. History of . PAST SURGICAL HISTORY: Unremarkable. ALLERGIES: No known drug allergies. SOCIAL HISTORY: Significant for smoking marijuana. No history of alcohol or tobacco abuse. REVIEW OF SYSTEMS: A 10-point review of systems was done and except what was mentioned above has been negative. MEDICATIONS: The patient received one dose of Levaquin and Flagyl in the emergency room. PHYSICAL EXAMINATION: VITAL SIGNS: Temperature 97.9, pulse 86, respiratory rate 18, and blood pressure 126/57. HEENT: No pale conjunctivae. No icterus. CHEST: Clear. HEART: S1 and S2. ABDOMEN: Soft. The patient has left lower quadrant tenderness. No rebound. EXTREMITIES: No cyanosis. NEUROLOGIC: Awake. LABORATORY DATA: White blood cells at the time of admission 12.9, hemoglobin 11.8, platelets 318. UA unremarkable. BUN 15 and creatinine 0.9. ASSESSMENT: The patient is a 37-year-old male with: 1. Leukocytosis. 2. Diverticulitis. CT scan of the abdomen showed infiltrate changes in the mid sigmoid colon with wall thickening, no loculated fluid collection or pneumoperitoneum. 3. Afebrile. PLAN: 1. We will start the patient on Rocephin and Flagyl. 2. Monitor CBC/monitor BMP. 3. Monitor the patient's clinical course. 4. Surgical recommendations for possible colectomy. Based on the patient's clinical course and labs, we will do further recommendation. Thank you, Dr. Francis, for allowing me to participate in the care of this patient. I will follow the patient with you during this hospitalization. Rajesh Figueroa M.D. DR: YUAN JOB#: [id number] CC:
--- NOTE | 2018-03-13 22:05 | NUR ---
NURSE NOTES: Left voicemail for Dr. Feliciano, pt requesting medication to help him sleep.
[2018-03-14] VITALS: BP 135/81
[2018-03-14 04:00] VITALS: BP 141/79
[2018-03-14] MEDS: Morphine Sulfate 4mg/ml Inj (IV USE ONLY) IVP PRN ×2 (05:09→09:15)
--- NOTE | 2018-03-14 07:28 | NUR ---
HAND-OFF: Report given to ARIA Bill.
[2018-03-14 07:57] LABS: ALANINE AMINOTRANSFERASE 34 U/L (12-78); ALBUMIN 3.3 G/DL (3.4-5.0); ALKALINE PHOSPHATASE 71 U/L (46-116); ANION GAP 10 mmol/L (5-15); ASPARTATE AMINO TRANSFERASE 12 U/L (15-37); BILIRUBIN,TOTAL 0.9 MG/DL (0.2-1.0); BLOOD UREA NITROGEN 7 mg/dL (7-18); CARBON DIOXIDE 23 MMOL/L (21-32); CHLORIDE 107 MMOL/L (98-107); CREATININE 0.8 MG/DL (0.55-1.30); POTASSIUM 3.5 MMOL/L (3.5-5.1); SODIUM 140 MMOL/L (136-145)
[2018-03-14 08:00] VITALS: BP 140/87
--- NOTE | 2018-03-14 08:00 | NUR ---
NURSE NOTES: received patient in semi-Fowlers, awake, alert, oriented, complains of abdominal pain. Nurse told patient medication is not due, and she'll give him pain medication when it is. Patient receives IVF through IV access on RAC, no leakage, redness or infiltration noted. Call light within easy reach, siderails up and bed locked at the lowest position possible. Will conitnue to monitor patient and follow up with the plan of care.
[2018-03-14] MEDS: Docusate 100mg cap ORAL SCH (08:12)
--- NOTE | 2018-03-14 08:52 | Nephrology Progress Note ---
Assessment/Plan Assessment/Plan A/P 1) Abd Pain- - d/w ID and gen surg. Unlikley rebout of diverticulitis - Abd pain resolved post BM - Will DC today if labs stable - patient will need PCP at DC 2) DVT prophylaxis- Lovenox Subjective Date patient seen: Mar 14, 2018 Time patient seen: 08:49 ROS Limited/Unobtainable: No Allergies: Coded Allergies: No Known Allergies (Unverified , 02/14/18) Subjective Patient abdominal pain resolved post BM Objective Last 24 Hour Vital Signs Date Time Temp Pulse Resp B/P (MAP) Pulse Ox O2 Delivery O2 Flow Rate FiO2 03/14/18 08:00 97.6 74 20 140/87 (104) 96 03/14/18 04:00 97.7 78 18 141/79 (99) 95 03/14/18 00:00 98.9 87 18 135/81 (99) 96 03/13/18 21:00 Room Air 03/13/18 20:00 97.8 75 151/93 (112) 03/13/18 16:00 97.7 64 145/88 (107) 03/13/18 12:00 97.4 72 135/74 (94) 03/13/18 11:30 Room Air 03/13/18 11:00 97.9 68 14 126/57 100 Room Air 03/13/18 11:00 97.9 68 14 126/57 100 Room Air 03/13/18 09:16 97.9 64 13 114/62 99 Room Air Intake and Output 03/13/18 03/14/18 19:00 07:00 Intake Total 240 ml 700 ml Balance 240 ml 700 ml Intake Oral 40 ml IV Total 200 ml 700 ml # Voids 3 # Bowel Movements 1 Laboratory Tests 03/14/18 05:40: White Blood Count [Pending], Red Blood Count [Pending], Hemoglobin [Pending], Hematocrit [Pending], Mean Corpuscular Volume [Pending], Mean Corpuscular Hemoglobin [Pending], Mean Corpuscular Hemoglobin Concent [Pending], Red Cell Distribution Width [Pending], Platelet Count [Pending], Mean Platelet Volume [ Pending], Neutrophils (%) (Auto) [Pending], Lymphocytes (%) (Auto) [Pending], Monocytes (%) (Auto) [Pending], Eosinophils (%) (Auto) [Pending], Basophils (%) (Auto) [Pending], Erythrocyte Sedimentation Rate [Pending], Sodium Level 140, Potassium Level 3.5, Chloride Level 107, Carbon Dioxide Level 23, Anion Gap 10, Blood Urea Nitrogen 7, Creatinine 0.8, Estimat Glomerular Filtration Rate > 60, Glucose Level 91, Calcium Level 9.0, Total Bilirubin 0.9, Aspartate Amino Transf (AST/SGOT) 12L, Alanine Aminotransferase (ALT/SGPT) 34, Alkaline Phosphatase 71, C-Reactive Protein, Quantitative 7.2H, Total Protein 6.7, Albumin 3.3L, Globulin 3.4, Albumin/Globulin Ratio 1.0 Height (Feet): 6 Weight (Pounds): 250 General Appearance: no apparent distress, alert EENT: normal ENT inspection Neck: normal alignment, supple Cardiovascular: normal rate, regular rhythm Respiratory/Chest: lungs clear, normal breath sounds Abdomen: non tender, soft Edema: no edema noted Arm (L), no edema noted Arm (R), no edema noted Leg (L), no edema noted Leg (R), no edema noted Pedal (L), no edema noted Pedal (R), no edema noted Generalized Rafael Francis MD Mar 14, 2018 08:52
--- NOTE | 2018-03-14 08:54 | Discharge Instructions ---
Discharge Instructions Discharge Instructions Services at Discharge: day care Additional Diet Information: High Fiber Resume Normal Activity?: Yes Follow Up Orders Follow up with PCP on [facility] list 1 week For Congestive Heart Failure Reminder Report to your physician any weight gain of 5 pounds or more in one week. Rafael Francis MD Mar 14, 2018 08:54
[2018-03-14 09:02] LABS: BASOPHILS % (AUTO) 0.5 % (0.0-2.0); EOSINOPHILS % (AUTO) 0.7 % (0.0-3.0); HEMATOCRIT 41.2 % (42.0-52.0); MEAN CORPUSCULAR VOLUME 86 FL (80-99); MONOCYTES % (AUTO) 9.6 % (1.0-10.0); NEUTROPHILS % (AUTO) 74.2 % (45.0-75.0); PLATELET COUNT 274 K/UL (150-450); RED BLOOD COUNT 4.79 M/UL (4.70-6.10); RED CELL DISTRIBUTION WIDTH 12.2 % (11.6-14.8)
--- NOTE | 2018-03-14 10:41 | NUR ---
CASE MANAGEMENT: REVIEW 03/14/2018 SI:DIVERTICULITIS. T 97.6 HR 74 RR 20 B/P 140/87 SATS 96% ON RA WBC 11 AST 12 IS: IVF @ 100 mL/HR PEPCID PO QD LOVENOX SUBQ Q24H CEFTRIAXONE IV Q24H FLAGYL IV Q8H MED/SURG STATUS DCP: PATIENT TO BE DISCHARGED TO HOME ONCE MEDICALLY CLEARED. PLAN OF CARE: DISCHARGE TO HOME
[2018-03-14] MEDS: Enoxaparin 40mg Inj SUBQ SCH (11:30)
[2018-03-14 12:00] VITALS: BP 123/87
--- NOTE | 2018-03-14 13:03 | Surgery Progress Note ---
Surgery Progress Note Subjective Symptoms: improved, pain absent, tolerating diet, BM Objective Last 24 Hour Vital Signs Date Time Temp Pulse Resp B/P (MAP) Pulse Ox O2 Delivery O2 Flow Rate FiO2 03/14/18 12:00 98.3 76 20 123/87 (99) 98 03/14/18 09:45 97.6 03/14/18 09:00 Room Air 03/14/18 08:00 97.6 74 20 140/87 (104) 96 03/14/18 04:00 97.7 78 18 141/79 (99) 95 03/14/18 00:00 98.9 87 18 135/81 (99) 96 03/13/18 21:00 Room Air 03/13/18 20:00 97.8 75 151/93 (112) 03/13/18 16:00 97.7 64 145/88 (107) I&O Intake and Output 03/13/18 03/14/18 19:00 07:00 Intake Total 240 ml 700 ml Balance 240 ml 700 ml Intake Oral 40 ml IV Total 200 ml 700 ml # Voids 3 # Bowel Movements 1 Drains: none Cardiovascular: RSR Respiratory: clear Abdomen: soft, non-tender, present bowel sounds, non-distended Extremities: no cyanosis Laboratory Tests Test 03/14/18 05:40 White Blood Count 11.0 K/UL (4.8-10.8) H Red Blood Count 4.79 M/UL (4.70-6.10) Hemoglobin 14.0 G/DL (14.2-18.0) L Hematocrit 41.2 % (42.0-52.0) L Mean Corpuscular Volume 86 FL (80-99) Mean Corpuscular Hemoglobin 29.3 PG (27.0-31.0) Mean Corpuscular Hemoglobin Concent 34.0 G/DL (32.0-36.0) Red Cell Distribution Width 12.2 % (11.6-14.8) Platelet Count 274 K/UL (150-450) Mean Platelet Volume 6.2 FL (6.5-10.1) L Neutrophils (%) (Auto) 74.2 % (45.0-75.0) Lymphocytes (%) (Auto) 15.0 % (20.0-45.0) L Monocytes (%) (Auto) 9.6 % (1.0-10.0) Eosinophils (%) (Auto) 0.7 % (0.0-3.0) Basophils (%) (Auto) 0.5 % (0.0-2.0) Erythrocyte Sedimentation Rate 25 MM/HR (0-15) H Sodium Level 140 MMOL/L (136-145) Potassium Level 3.5 MMOL/L (3.5-5.1) Chloride Level 107 MMOL/L (98-107) Carbon Dioxide Level 23 MMOL/L (21-32) Anion Gap 10 mmol/L (5-15) Blood Urea Nitrogen 7 mg/dL (7-18) Creatinine 0.8 MG/DL (0.55-1.30) Estimat Glomerular Filtration Rate > 60 mL/min (>60) Glucose Level 91 MG/DL (74-106) Calcium Level 9.0 MG/DL (8.5-10.1) Total Bilirubin 0.9 MG/DL (0.2-1.0) Aspartate Amino Transf (AST/SGOT) 12 U/L (15-37) L Alanine Aminotransferase (ALT/SGPT) 34 U/L (12-78) Alkaline Phosphatase 71 U/L (46-116) C-Reactive Protein, Quantitative 7.2 mg/dL (0.00-0.90) H Total Protein 6.7 G/DL (6.4-8.2) Albumin 3.3 G/DL (3.4-5.0) L Globulin 3.4 g/dL Albumin/Globulin Ratio 1.0 (1.0-2.7) Plan Problems: (1) Diverticulitis Assessment & Plan: 37M with recent episode of acute uncomplicated diverticulitis presents with abdominal pain. pain improved since admission. no n/v/f/c. labs noted. CT with likely residual inflammation from prior tolerating diet pain resolved labs okay exam benign diet as tolerated dc home thank you will follow with alec. Rigo Yu Mar 14, 2018 13:03
--- NOTE | 2018-03-14 13:55 | NUR ---
NURSE NOTES: patient has been discharged to home, left ambulatory accompanied by mother, going by private vehicle. Patient signed off belongings list and left with all his belongings. Taken IV access off, no bleeding noted after compression of the site. Given discharge packet with instructions regarding diet and to follow up with PCP at [facility]. Patient in stable condition and VVSS, no complaint of pain or discomfort at the time of discharge.
--- NOTE | 2018-03-16 09:08 | Discharge Summary ---
Discharge Summary Discharge Summary _ DATE OF ADMISSION: 03/13/2018 DATE OF DISCHARGE: 03/14/2018 DISCHARGED BY: Dr. Francis REASON FOR ADMISSION: 37 years old male , who had been recently admitted for diverticulitis and successfully treated and subsequently sent home on oral antibiotic , presented to emergency department with complaint of left lower quadrant pain. Patient had 2 episodes of acute diverticulitis within the last few months. CAT scan of the abdomen and pelvis revealed pericolic infiltrative changes regional to the mid sigmoid colon with concentric focal colonic wall thickening. It was unclear if this represented postinflammatory findings from the previous diverticulitis from over a month ago versus a new case of diverticulitis. No loculated fluid collection to suggest an abscess. No evidence of pneumoperitoneum. Laboratory workup revealed mild leukocytosis of 11.8, stable hemoglobin hematocrit. Stable electrolytes and renal parameters. Lipase and LFT within normal limits. Patient was admitted for further management. with concern for possible new bout of diverticulitis. CONSULTANTS: ID specialist Dr. Figueroa surgery Dr. Yu [facility] COURSE: Patient admitted to medical surgical floor. Patient started on empiric antibiotic. Surgeon consulted for further evaluation and management , concerning possible new episode of diverticulitis in the last few months. Patient started on empiric antibiotic. Infectious disease specialist followed . DVT and GI prophylaxis provided. Bowel regimen instituted. Symptomatic treatment provided as needed. Antiemetic were on board as needed. Pain management was addressed. No nausea , no vomiting, no fever, no chills. CT scan closely reviewed by surgeon , unlikely new diverticulitis, likely residual inflammation from prior diverticulitis. Patient was able to tolerate diet. Pain resolved after bowel movement. Abdominal exam was benign. Surgeon cleared patient for discharge. Per surgeon unlikely new bout of diverticulitis. Patient was provided with dietary instructions for management of diverticular disease and ways to prevent constipation. Due to rapid and unexpected improvement in patient condition patient was discharged in 1 day. FINAL DIAGNOSES: History of recurrent diverticulitis Abdominal pain, resolved DISCHARGE MEDICATIONS: See Medication Reconciliation list. DISCHARGE INSTRUCTIONS: Patient was discharged home . Follow up with primary care provider in one week. I have been assigned to dictate discharge summary for this account. I was not involved in the patient's management. Karma Beck NP Mar 16, 2018 09:08
--- NOTE | 2018-03-20 10:33 | NUR ---
CASE MANAGEMENT: CM review and clinical information (face sheet/DC summary/ ER MD Note/ H&P) faxed to [facility] @ [phone]
== END 2018-03-14 13:50 | disposition home or self-care (01) | DRG 249 ==
LOC: EMR 04:22 → CANBEDREQ 04:57 → EDBEDREQ 09:52 → 3E 10:10
DX: K52.89 Other specified noninfective gastroenteritis and colitis (principal); R10.9 Unspecified abdominal pain
CPT/HCPCS: 36415; 74177; 80053; 83690; 85025; 85651; 86140; 87081; 96361; 96365; 96368; 96375; 99285